=== PATIENT | male | born 1940 | race Caucasian/White ===

== ENCOUNTER 2017-06-06 05:37 | Inpatient (IN) | payer MEDICARE, BC ==
[~2017-06-06] VITALS: Ht 180.3 cm; Wt 88.5 kg
[2017-06-06] VITALS (11 sets, daily range): BP systolic 101–158; BP diastolic 69–113; PULSE 51–140; RESP 15–20; TEMP 96.3–98.3; O2SAT 95–99
[~2017-06-06 05:37] MED LIST: FINA5TAB77; RAPA8CAP PO
[2017-06-06] MEDS ORDERED: FUROSEMIDE 100 MG/10 ML VIAL IV PUSH ONE (06:00)
[2017-06-06] MEDS ORDERED: SODIUM CHLORIDE 0.9% FLUSH 10 ML FLUSH IVF PRN (06:00)
[2017-06-06 06:10] LABS: AUTOMATED NEUTROPHIL # 7.7 TH/MM3 (1.8-7.7); BASOPHIL # 0.1 TH/MM3 (0-0.2); EOSINOPHIL # 0.3 TH/MM3 (0-0.4); EOSINOPHIL % 2.4 % (0.0-4.0); HEMATOCRIT 49.5 % (39.0-51.0); HEMO FLAGS DIFF FINAL; LYMPH % 21.5 % (9.0-44.0); LYMPHOCYTE # 2.4 TH/MM3 (1.0-4.8); MEAN CELL VOLUME 91.1 FL (80.0-100.0); MEAN CORPUSCULAR HEMOGLOBIN 28.6 PG (27.0-34.0); MEAN CORPUSCULAR HGB CONC 31.5 % (32.0-36.0); MONO % 5.1 % (0.0-8.0); PLATELET COUNT 331 TH/MM3 (150-450); RED BLOOD COUNT 5.44 MIL/MM3 (4.50-5.90); RED CELL DISTRIBUTION WIDTH 13.6 % (11.6-17.2); WHITE BLOOD COUNT 11.1 TH/MM3 (4.0-11.0)
[2017-06-06] MEDS ORDERED: RAPA8CAP PO (06:10)
[2017-06-06] MEDS ORDERED: ADVA250A INH (06:10)
--- NOTE | 2017-06-06 06:11 | PD ---
HPI Chief Complaint: Short of breath Time Seen by Provider: 05:54 Travel History International Travel<30 days: No Contact w/Intl Traveler<30days: No Traveled to known affect area: No History of Present Illness HPI The patient is a 77-year-old male who comes in because of shortness of breath for 2 weeks. He states he's fine during the day but in the morning he wakes up short of breath. He did not notice leg swelling but he does have leg swelling. He has had a history of atrial fibrillation perhaps 10 years ago. He was on warfarin for a while given to him by Dr. Rivas but this was discontinued. He is not aware when he gets atrial fibrillation. He denies any chest discomfort, nausea but does have slight diaphoresis. The only medicine he takes is Rapaflo for his BPH and Advair for his asthma. PFSH Past Medical History Cancer: Yes (SKIN) Diminished Hearing: No Genitourinary: Yes (BPH) Respiratory: Yes (BRONCHITIS PAST 3 MONTHS 05/12/1106/12/2007) Immunizations Current: Yes Past Surgical History Appendectomy: Yes Tonsillectomy: Yes Other Surgery: Yes (SKIN CA REMOVED FROM FACE) Social History Alcohol Use: Yes (OCC) Tobacco Use: No Substance Use: No Allergies-Medications (Allergen,Severity, Reaction): Coded Allergies: No Known Allergies (Verified , 06/06/17) Reported Meds & Prescriptions Reported Meds & Active Scripts Active Reported Advair Diskus Inh (Fluticasone-Salmeterol Inh) 250-50 Mcg/Blist Aer 1 Puff INH BID Rinse mouth after use. Rapaflo (Silodosin) 8 Mg Cap 8 Mg PO DAILY Review of Systems Except as stated in HPI: all other systems reviewed are Neg Physical Exam Narrative GENERAL: The patient is alert, oriented 3 in no respirator distress. His vital signs show temperature 97.1 with pulse rate of 140 and blood pressure 139/ 97. Oximetry is 100% on 2 L nasal cannula. SKIN: Focused skin assessment warm/dry. HEAD: Atraumatic. Normocephalic. EYES: Pupils equal and round. No scleral icterus. No injection or drainage. ENT: No nasal bleeding or discharge. Mucous membranes pink and moist. NECK: Trachea midline. No JVD. CARDIOVASCULAR: Atrial fibrillation with rapid ventricular response. No murmur appreciated. RESPIRATORY: No accessory muscle use. Clear to auscultation. Breath sounds equal bilaterally. GASTROINTESTINAL: Abdomen soft, non-tender, nondistended. Hepatic and splenic margins not palpable. MUSCULOSKELETAL: No obvious deformities. No clubbing. No cyanosis. There is 2 + bilateral lower extremity edema. NEUROLOGICAL: Awake and alert. No obvious cranial nerve deficits. Motor grossly within normal limits. Normal speech. PSYCHIATRIC: Appropriate mood and affect; insight and judgment normal. Data Data Last Documented VS Vital Signs Date Time Temp Pulse Resp B/P (MAP) Pulse Ox O2 Delivery O2 Flow Rate FiO2 06/06/17 06:43 100 158/98 06/06/17 06:40 20 06/06/17 06:24 95 Nasal Cannula 2.00 06/06/17 05:44 97.1 Orders Orders Electrocardiogram (06/06/17 05:54) Complete Blood Count With Diff (06/06/17 05:54) Comprehensive Metabolic Panel (06/06/17 05:54) Magnesium (Mg) (06/06/17 05:54) Prothrombin Time / Inr (Pt) (06/06/17 05:54) Act Partial Throm Time (Ptt) (06/06/17 05:54) Troponin I (06/06/17 05:54) Ecg Monitoring (06/06/17 05:54) Bilateral Bp Monitoring (06/06/17 05:54) Iv Access Insert/Monitor (06/06/17 05:54) Oximetry (06/06/17 05:54) Oxygen Administration (06/06/17 05:54) Sodium Chloride 0.9% Flush (Ns Flush) (06/06/17 06:00) B-Type Natriuretic Peptide (06/06/17 05:54) Furosemide Inj (Lasix Inj) (06/06/17 06:00) Vital Signs (Adult) Q15MX4,Q4H (06/06/17 06:12) Hand Finisher / Telemetry SANTOSH.Q8H (06/06/17 06:12) Cardiac Rhythm SANTOSH.Q8H (06/06/17 06:12) Notify Dr: Other (06/06/17 06:12) Diltiazem Inj (Cardizem Inj) (06/06/17 06:15) Diltiazem Inj (Cardizem Inj) (06/06/17 06:15) Chest, Single Ap (06/06/17 05:54) Urinary Catheter Insert/Apply (06/06/17 06:50) Labs Laboratory Tests Test 06/06/17 06:00 06/06/17 06:30 White Blood Count 11.1 TH/MM3 Red Blood Count 5.44 MIL/MM3 Hemoglobin 15.6 GM/DL Hematocrit 49.5 % Mean Corpuscular Volume 91.1 FL Mean Corpuscular Hemoglobin 28.6 PG Mean Corpuscular Hemoglobin Concent 31.5 % Red Cell Distribution Width 13.6 % Platelet Count 331 TH/MM3 Mean Platelet Volume 8.4 FL Neutrophils (%) (Auto) 70.0 % Lymphocytes (%) (Auto) 21.5 % Monocytes (%) (Auto) 5.1 % Eosinophils (%) (Auto) 2.4 % Basophils (%) (Auto) 1.0 % Neutrophils # (Auto) 7.7 TH/MM3 Lymphocytes # (Auto) 2.4 TH/MM3 Monocytes # (Auto) 0.6 TH/MM3 Eosinophils # (Auto) 0.3 TH/MM3 Basophils # (Auto) 0.1 TH/MM3 CBC Comment DIFF FINAL Differential Comment Prothrombin Time 12.0 SEC Prothromb Time International Ratio 1.1 RATIO Activated Partial Thromboplast Time 26.5 SEC B-Type Natriuretic Peptide 560 PG/ML Blood Urea Nitrogen 16 MG/DL Creatinine 1.00 MG/DL Random Glucose 121 MG/DL Albumin 4.0 GM/DL Calcium Level 9.2 MG/DL Magnesium Level 2.3 MG/DL Aspartate Amino Transf (AST/SGOT) 19 U/L Alanine Aminotransferase (ALT/SGPT) 30 U/L Sodium Level 136 MEQ/L Potassium Level 4.2 MEQ/L Chloride Level 101 MEQ/L Carbon Dioxide Level 28.3 MEQ/L Anion Gap 7 MEQ/L Estimat Glomerular Filtration Rate 73 ML/MIN [facility] Medical Decision Making Medical Screen Exam Complete: Yes Emergency Medical Condition: Yes Medical Record Reviewed: Yes Interpretation(s) The chest x-ray shows heart size upper limits of normal with a mild chronic- appearing interstitial changes and no acute pneumonia or edema. There is some old right rib fractures. The ProTime is 12.0 with an INR 1.1 and a PTT of 26.0. The EKG shows atrial fibrillation with a response rate of [address] elevation or depression. Differential Diagnosis Atrial fibrillation with RVR, congestive heart failure, electrolyte disorder, non-STEMI, acute coronary syndrome, pulmonary edema Narrative Course It is now 0656 the patient is transferred to Samson Odom MD Jun 06, 2017 06:11
[2017-06-06] MEDS ORDERED: DILTIAZEM HCL 25 MG/5 ML VIAL IV PUSH ONE (06:15)
[2017-06-06 06:21] LABS: APTT (PATIENT) 26.5 SEC (24.3-30.1); INTERNATIONAL NORMALIZED RATIO 1.1 RATIO
[2017-06-06] MEDS: DILTIAZEM INJ 125 MG in SODIUM CHLORIDE 0.9% INJ 100 ML IV PRN (06:43)
--- NOTE | 2017-06-06 06:45 | RADRPT ---
EXAM DATE/TIME: 06/06/2017 06:11 [place] COMPARISON: Report only, 08/29/2007. INDICATIONS : Short of breath. MEDICAL HISTORY : A-fib. SURGICAL HISTORY : None. ENCOUNTER: Initial ACUITY: 1 day PAIN SCORE: 5/10 LOCATION: Bilateral chest FINDINGS: Mild basilar predominant interstitial opacities are present, chronic appearing and described previous ly. No lobar consolidation seen. No pleural effusion or pneumothorax. Heart size upper limits of normal. Old right rib fractures are noted. CONCLUSION: Mild chronic appearing interstitial changes. No acute pneumonia or edema seen. Old right rib fracture s. Brina Jessica MD on June 06, 2017 at 6:42 Board Certified Radiologist. This report was verified electronically.
[2017-06-06 06:49] LABS: CHLORIDE 101 MEQ/L (98-107); POTASSIUM 4.2 MEQ/L (3.5-5.1); SODIUM (NA) 136 MEQ/L (136-145)
[2017-06-06 06:53] LABS: ANION GAP 7 MEQ/L (5-15); BICARBONATE 28.3 MEQ/L (21.0-32.0); BLOOD UREA NITROGEN 16 MG/DL (7-18); MAGNESIUM 2.3 MG/DL (1.5-2.5)
[2017-06-06 06:56] LABS: ALT (GPT) 30 U/L (12-78); AST (GOT) 19 U/L (15-37); GLOMERULAR FILTRATION RATE 73 ML/MIN (>89)
[2017-06-06 06:59] LABS: ALKALINE PHOSPHATASE 110 U/L (45-117)
--- NOTE | 2017-06-06 07:26 | PD ---
Physical Exam Narrative Received sign out from previous team to follow up troponin and admit pt. 77yo M with PMH of BPH, asthma, remote history of afib 10 years ago not on any medication presents to the ED with c/o sob for 2 weeks. Sob is worst with exertion. Denies any chest pain. On arrival, pt's was in afib RVR at 134bpm. Pt was given cardizem 15mg IV and then placed on a cardizem drip. HR is now in the 80s on cardizem drip. Pt has not seen his well driller Dr. Blum in at [facility] 7-8 years and has not been on coumadin for afib for around the same time. Labs reviewed, WBC 11.1. BNP elevated at 560. Bilirubin elevated at 2.0 but pt has no abdominal pain or tenderness on exam. Pt does have bilateral lower extremity edema but does not noticed it. Pt given 80mg IV lasix by previous team. Troponin 0.03. CXR showed mild chronic appearing interstitial changes. No acute pneumonia or edema. Old right rib fractures. Pt evaluated at bedside and feeling much better. No longer sob. HR is controlled with cardizem drip at 5ml/hr. Discussed with Dr. Rowell who accepted pt to her service. Data Data Last Documented VS Vital Signs Date Time Temp Pulse Resp B/P (MAP) Pulse Ox O2 Delivery O2 Flow Rate FiO2 06/06/17 06:43 100 158/98 06/06/17 06:40 20 06/06/17 06:24 95 Nasal Cannula 2.00 06/06/17 05:44 97.1 Orders Orders Electrocardiogram (06/06/17 05:54) Complete Blood Count With Diff (06/06/17 05:54) Comprehensive Metabolic Panel (06/06/17 05:54) Magnesium (Mg) (06/06/17 05:54) Prothrombin Time / Inr (Pt) (06/06/17 05:54) Act Partial Throm Time (Ptt) (06/06/17 05:54) Troponin I (06/06/17 05:54) Ecg Monitoring (06/06/17 05:54) Bilateral Bp Monitoring (06/06/17 05:54) Iv Access Insert/Monitor (06/06/17 05:54) Oximetry (06/06/17 05:54) Oxygen Administration (06/06/17 05:54) Sodium Chloride 0.9% Flush (Ns Flush) (06/06/17 06:00) B-Type Natriuretic Peptide (06/06/17 05:54) Furosemide Inj (Lasix Inj) (06/06/17 06:00) Vital Signs (Adult) Q15MX4,Q4H (06/06/17 06:12) Distance Learning Coordinator / Telemetry SANTOSH.Q8H (06/06/17 06:12) Cardiac Rhythm SANTOSH.Q8H (06/06/17 06:12) Notify Dr: Other (06/06/17 06:12) Diltiazem Inj (Cardizem Inj) (06/06/17 06:15) Diltiazem Inj (Cardizem Inj) (06/06/17 06:15) Chest, Single Ap (06/06/17 05:54) Urinary Catheter Insert/Apply (06/06/17 06:50) Admit Order (Ed Use Only) (06/06/17 07:38) Labs Laboratory Tests Test 06/06/17 06:00 06/06/17 06:30 White Blood Count 11.1 TH/MM3 Red Blood Count 5.44 MIL/MM3 Hemoglobin 15.6 GM/DL Hematocrit 49.5 % Mean Corpuscular Volume 91.1 FL Mean Corpuscular Hemoglobin 28.6 PG Mean Corpuscular Hemoglobin Concent 31.5 % Red Cell Distribution Width 13.6 % Platelet Count 331 TH/MM3 Mean Platelet Volume 8.4 FL Neutrophils (%) (Auto) 70.0 % Lymphocytes (%) (Auto) 21.5 % Monocytes (%) (Auto) 5.1 % Eosinophils (%) (Auto) 2.4 % Basophils (%) (Auto) 1.0 % Neutrophils # (Auto) 7.7 TH/MM3 Lymphocytes # (Auto) 2.4 TH/MM3 Monocytes # (Auto) 0.6 TH/MM3 Eosinophils # (Auto) 0.3 TH/MM3 Basophils # (Auto) 0.1 TH/MM3 CBC Comment DIFF FINAL Differential Comment Prothrombin Time 12.0 SEC Prothromb Time International Ratio 1.1 RATIO Activated Partial Thromboplast Time 26.5 SEC B-Type Natriuretic Peptide 560 PG/ML Blood Urea Nitrogen 16 MG/DL Creatinine 1.00 MG/DL Random Glucose 121 MG/DL Total Protein 7.3 GM/DL Albumin 4.0 GM/DL Calcium Level 9.2 MG/DL Magnesium Level 2.3 MG/DL Alkaline Phosphatase 110 U/L Aspartate Amino Transf (AST/SGOT) 19 U/L Alanine Aminotransferase (ALT/SGPT) 30 U/L Total Bilirubin 2.0 MG/DL Sodium Level 136 MEQ/L Potassium Level 4.2 MEQ/L Chloride Level 101 MEQ/L Carbon Dioxide Level 28.3 MEQ/L Anion Gap 7 MEQ/L Estimat Glomerular Filtration Rate 73 ML/MIN Troponin I 0.03 NG/ML MDM Supervised Visit with ALEISHA: No Diagnosis Primary Impression: Atrial fibrillation with RVR Admitting Information Admitting Physician Requests: Admit Marce Dixon DO Jun 06, 2017 07:26
[2017-06-06] MEDS ORDERED: LACTULOSE SYRUP 20 GM/30 ML CUP PO PRN (09:30)
[2017-06-06] MEDS ORDERED: SODIUM CHLORIDE 0.9% FLUSH 10 ML FLUSH IV FLUSH PRN (09:30)
[2017-06-06] MEDS ORDERED: ACETAMINOPHEN/HYDROcodone 325 MG/5 MG TAB PO PRN (09:30)
[2017-06-06] MEDS ORDERED: BISACODYL 10 MG SUPP RECTAL PRN (09:30)
[2017-06-06] MEDS ORDERED: SENNOSIDES 8.6 MG TAB PO PRN (09:30)
[2017-06-06] MEDS ORDERED: ONDANSETRON HCL 4 MG/2 ML VIAL IVP PRN (09:30)
[2017-06-06] MEDS ORDERED: ACETAMINOPHEN 325 MG TAB PO PRN (09:30)
[2017-06-06] MEDS ORDERED: MAGNESIUM HYDROXIDE SUSP 30 ML CUP PO PRN (09:30)
[2017-06-06] MEDS: METOPROLOL TARTRATE 50 MG TAB PO SCH ×5 (10:08→22:53)
[2017-06-06] MEDS: APIXABAN 5 MG TABLET PO SCH ×2 (10:09→20:04)
[2017-06-06 12:28] LABS: FREE T4 1.29 NG/DL (0.76-1.46)
--- NOTE | 2017-06-06 14:02 | EKG ---
Date Performed: 06/06/2017 Time Performed: 05:54:08 PTAGE: 77 years EKG: ATRIAL FIBRILLATION WITH RAPID VENTRICULAR RESPONSE NONSPECIFIC T-WAVE ABNORMALITY ABNORMAL RHYTHM ECG PREVIOUS TRACING : 02/28/2011 07.16 Since prior tracing, ventricular response atrial fibrillati on has increased. DOCTOR: Dago Aguilar Interpretating Date/Time 06/06/2017 14:01:17
--- NOTE | 2017-06-06 15:39 | ECHRPT ---
Indication: CONCLUSIONS Severely dilated left ventricle. Wall thickness is measured at the upper limits of normal. The left ventricular systolic function is severely reduced with an estimated ejection fraction in th e range of 20-25%. The left atrial size is mildly dilated. The right atrial size is zohbyjrq-cz-ixvbjgif dilated. The right atrial size is moderately dilated. A patent foramen ovale is present with a tfsa-ik-jhefj shunt demonstrated by color flow Doppler interrogation. Mild thickening of the mitral valve leaflets. Moderate mitral valve regurgitation. Diffuse calcification of the aortic valve. Moderate aortic valve regurgitation. Severe aortic valve stenosis. Aortic valve area is 0.4 cm. Aortic valve mean gradient is 41.5 mmHg. There is moderate tricuspid regurgitation. There is estimated moderate pulmonary hypertension present (range 50-60 mmHg). A large left sided pleural effusion is noted. BP: 123 / 81 HR: 92 Rhythm: Atrial fibrillation, Atrial flut ter MEASUREMENTS (Male / Female) Normal Values Technical Quality:Fair 2D ECHO LV Diastolic Diameter PLAX 6.3 cm 4.2 - 5.9 / 3.9 - 5.3 cm LV Systolic Diameter PLAX 5.4 cm IVS Diastolic Thickness 0.7 cm 0.6 - 1.0 / 0.6 - 0.9 cm LVPW Diastolic Thickness 0.8 cm 0.6 - 1.0 / 0.6 - 0.9 cm LV Relative Wall Thickness 0.2 LVOT Diameter 2.5 cm Aortic Root Diameter 3.4 cm LA Systolic Diameter LX 3.7 cm 3.0 - 4.0 / 2.7 - 3.8 cm LA Volume Index 40.7 cm/m 16 - 28 cm/m DOPPLER AV Peak Velocity 416.0 cm/s AV Peak Gradient 69.2 mmHg AV Mean Gradient 41.5 mmHg AV Velocity Time Integral 92.6 cm AI Peak Velocity 429.2 cm/s AI Peak Gradient 73.7 mmHg AI Pressure Half Time 590.4 ms LVOT Peak Velocity 43.9 cm/s LVOT Peak Gradient 0.8 mmHg LVOT Velocity Time Integral 7.5 cm LVOT Cardiac Index 1558.4 cm/minm AV Area Cont Eq vti 0.4 cm AV Area Cont Eq pk 0.5 cm Mitral E Point Velocity 87.0 cm/s LV E' Lateral Velocity 6.2 cm/s Mitral E to LV E' Lateral Ratio 14.1 LV E' Septal Velocity 6.2 cm/s Mitral E to LV E' Septal Ratio 13.9 TR Peak Velocity 327.0 cm/s TR Peak Gradient 42.8 mmHg Right Atrial Pressure 10.0 mmHg Pulmonary Artery Systolic Pressu 52.8 mmHg Right Ventricular Systolic Press 52.8 mmHg PV Peak Velocity 39.6 cm/s PV Peak Gradient 0.6 mmHg FINDINGS LEFT VENTRICLE Severely dilated left ventricle. Wall thickness is measured at the upper limits of normal. The left ventricular systolic function is severely reduced with an estimated ejection fraction in th e range of 20-25%. RIGHT VENTRICLE Normal right ventricular size and systolic function. LEFT ATRIUM The left atrial size is mildly dilated. RIGHT ATRIUM The right atrial size is gijjypvr-rj-zbdqsbst dilated. The right atrial size is moderately dilated. ATRIAL SEPTUM A patent foramen ovale is present with a gtig-xs-[id number] shunt demonstrated by color flow Doppler interrogation. AORTA The aortic root and proximal ascending aorta are normal in size on limited imaging. MITRAL VALVE Mild thickening of the mitral valve leaflets. Moderate mitral valve regurgitation. AORTIC VALVE Diffuse calcification of the aortic valve. Moderate aortic valve regurgitation. Severe aortic valve stenosis. Aortic valve area is 0.4 cm. Aortic valve mean gradient is 41.5 mmHg. TRICUSPID VALVE There is moderate tricuspid regurgitation. There is estimated moderate pulmonary hypertension present (range 50-60 mmHg). PULMONARY VALVE No pulmonary valve regurgitation or stenosis. VESSELS The inferior vena cava is normal in size. PERICARDIUM A large left sided pleural effusion is noted. Jreald Osborn MD, FACC (Electronically Signed) Final Date:06 June 2017 15:37
--- NOTE | 2017-06-06 16:15 | HHI.HP ---
[facility] Service [facility] Primary Care Physician Diony Perez M.D. Admission Diagnosis Afib RVR Diagnoses: Travel History International Travel<30 Days: No Contact w/Intl Traveler <30 Da: No Traveled to Known Affected Are: No History of Present Illness This is a very pleasant 77-year-old male with past medical history of remote atrial fibrillation, asthma, BPH who presented to the ER this morning complaining of shortness of breath 2 weeks. The patient states the symptoms have been getting progressively severe. No palliative factors. Exertion makes the dyspnea worse. He wakes up at 4 or 5:00 in the morning gasping for breath. He denies any chest pain or chest pressure. He does have a history of atrial fibrillation but he states he cannot tell when he is in A. fib. He used to be on anticoagulation. He has not seen his [facility] chemist for years. The patient denies any palpitations. He denies noting any pedal edema at home however the emergency department physician noted he had pedal edema. The emergency department he was noted to have atrial fibrillation with a rapid ventricular rate of 130 and was given IV Cardizem bolus and started on Cardizem drip. Chest x-ray showed chronic interstitial changes but no acute edema. The patient was given 80 mg IV of Lasix. This morning he states he is not short of breath at rest but still gets short of breath with exertion. A Abraham catheter was placed in the emergency department and he has diuresed about 3 L. Review of Systems Constitutional: DENIES: Fever, Weight gain, Weight loss, Chills Eyes: DENIES: Blurred vision, Diplopia Ears, nose, mouth, throat: DENIES: Throat pain, Running Nose Respiratory: COMPLAINS OF: Shortness of breath, DENIES: Cough Cardiovascular: COMPLAINS OF: Dyspnea on Exertion, DENIES: Chest pain, Palpitations Gastrointestinal: DENIES: Abdominal pain, Vomiting Genitourinary: DENIES: Hematuria, Dysuria Musculoskeletal: DENIES: Joint pain, Neck pain Integumentary: DENIES: Pruritus, Rash Hematologic/lymphatic: DENIES: Lymphadenopathy Neurologic: DENIES: Abnormal gait, Headache Psychiatric: DENIES: Anxiety, Confusion Past Family Social History Past Medical History BPH Atrial fibrillation Basal cell carcinoma removed from the scalp Asthma Reported Medications Allergies Coded Allergies Type Severity Reaction Last Updated Verified No Known Allergies 06/06/17 Yes Active Scripts Medications Dose Route/Sig Max Daily Dose Days Date Category Dose Instructions Advair Diskus Inh (Fluticasone-Salmeterol Inh) 250-50 Mcg/Blist Aer 1 Puff INH BID 06/06/17 Reported Rinse mouth after use. Rapaflo (Silodosin) 8 Mg Cap 8 Mg PO DAILY 06/06/17 Reported Allergies: Coded Allergies: No Known Allergies (Verified , 06/06/17) Family History Reviewed and noncontributory Social History No alcohol tobacco or drug use Physical Exam Vital Signs Vital Signs Date Time Temp Pulse Resp B/P (MAP) Pulse Ox O2 Delivery O2 Flow Rate FiO2 06/06/17 12:43 96.7 71 16 101/85 (90) 97 06/06/17 09:15 95 06/06/17 08:50 96.3 92 15 123/81 (95) 99 06/06/17 08:29 06/06/17 08:07 86 18 101/69 (80) 99 Nasal Cannula 2.00 06/06/17 06:43 100 158/98 06/06/17 06:40 95 20 158/98 (118) 147/89 (108) 06/06/17 06:24 142 28 95 Nasal Cannula 2.00 06/06/17 06:20 115 20 157/113 (128) 98 06/06/17 06:04 100 Nasal Cannula 2.00 06/06/17 05:44 97.1 140 16 139/97 (111) 98 Physical Exam GENERAL: Well-nourished, well-developed patient. SKIN: Warm and dry. HEAD: Normocephalic. EYES: No scleral icterus. No injection or drainage. NECK: Supple, trachea midline. No JVD or lymphadenopathy. CARDIOVASCULAR: Irregular rate and rhythm, 2/6 systolic murmur left sternal border. RESPIRATORY: Breath sounds equal bilaterally. No crackles. No accessory muscle use. GASTROINTESTINAL: Abdomen soft, non-tender, nondistended. EXTREMITIES: 1+ pitting pedal edema bilaterally. NEUROLOGICAL: Awake, alert, and oriented x 3. Non-focal. Laboratory Laboratory Tests Test 06/06/17 06:00 06/06/17 06:30 White Blood Count 11.1 Red Blood Count 5.44 Hemoglobin 15.6 Hematocrit 49.5 Mean Corpuscular Volume 91.1 Mean Corpuscular Hemoglobin 28.6 Mean Corpuscular Hemoglobin Concent 31.5 Red Cell Distribution Width 13.6 Platelet Count 331 Mean Platelet Volume 8.4 Neutrophils (%) (Auto) 70.0 Lymphocytes (%) (Auto) 21.5 Monocytes (%) (Auto) 5.1 Eosinophils (%) (Auto) 2.4 Basophils (%) (Auto) 1.0 Neutrophils # (Auto) 7.7 Lymphocytes # (Auto) 2.4 Monocytes # (Auto) 0.6 Eosinophils # (Auto) 0.3 Basophils # (Auto) 0.1 CBC Comment DIFF FINAL Differential Comment Prothrombin Time 12.0 Prothromb Time International Ratio 1.1 Activated Partial Thromboplast Time 26.5 B-Type Natriuretic Peptide 560 Blood Urea Nitrogen 16 Creatinine 1.00 Random Glucose 121 Total Protein 7.3 Albumin 4.0 Calcium Level 9.2 Magnesium Level 2.3 Alkaline Phosphatase 110 Aspartate Amino Transf (AST/SGOT) 19 Alanine Aminotransferase (ALT/SGPT) 30 Total Bilirubin 2.0 Sodium Level 136 Potassium Level 4.2 Chloride Level 101 Carbon Dioxide Level 28.3 Anion Gap 7 Estimat Glomerular Filtration Rate 73 Troponin I 0.03 Free Thyroxine 1.29 Thyroid Stimulating Hormone 3rd Gen 1.070 Result Diagram: 06/06/17 0600 06/06/17 0630 Imaging Last Impressions Chest X-Ray 06/06/17 0554 Signed Impressions: Service Date/Time: June 06:11 - CONCLUSION: Mild chronic appearing interstitial changes. No acute pneumonia or edema seen. Old right rib fractures. Brian Jessica MD Caprini VTE Risk Assessment Caprini VTE Risk Assessment: Mod/High Risk (score >= 2) Caprini Risk Assessment Model Point Value = 1 Point Value = 2 Point Value = 3 Point Value = 5 Age 41-60 Minor surgery BMI > 25 kg/m2 Swollen legs Varicose veins or History of unexplained or recurrent spontaneous Oral contraceptives or hormone replacement Sepsis (< 1 month) Serious lung disease, including pneumonia (< 1 month) Abnormal pulmonary function Acute myocardial infarction Congestive heart failure (< 1 month) History of inflammatory bowel disease Medical patient at bed rest Age 61-74 Arthroscopic surgery Major open surgery (> 45 min) Laparoscopic surgery (> 45 min) Malignancy Confined to bed (> 72 hours) Immobilizing plaster cast Central venous access Age >= 75 History of VTE Family history of VTE Factor V Leiden Prothrombin 31001M Lupus anticoagulant Anticardiolipin antibodies Elevated serum homocysteine Heparin-induced thrombocytopenia Other congenital or acquired thrombophilia Stroke (< 1 month) Elective arthroplasty Hip, pelvis, or leg fracture Acute spinal cord injury (< 1 month) Prophylaxis Regimen Total Risk Factor Score Risk Level Prophylaxis Regimen 0-1 Low Early ambulation 2 Moderate Order ONE of the following: *Sequential Compression Device (SCD) *Heparin 5000 units SQ BID 3-4 Higher Order ONE of the following medications: *Heparin 5000 units SQ TID *Enoxaparin/Lovenox 40 mg SQ daily (WT < 150 kg, CrCl > 30 mL/min) *Enoxaparin/Lovenox 30 mg SQ daily (WT < 150 kg, CrCl > 10-29 mL/min) *Enoxaparin/Lovenox 30 mg SQ BID (WT < 150 kg, CrCl > 30 mL/min) AND/OR *Sequential Compression Device (SCD) 5 or more Highest Order ONE of the following medications: *Heparin 5000 units SQ TID (Preferred with Epidurals) *Enoxaparin/Lovenox 40 mg SQ daily (WT < 150 kg, CrCl > 30 mL/min) *Enoxaparin/Lovenox 30 mg SQ daily (WT < 150 kg, CrCl > 10-29 mL/min) *Enoxaparin/Lovenox 30 mg SQ BID (WT < 150 kg, CrCl > 30 mL/min) AND *Sequential Compression Device (SCD) Assessment and Plan Problem List: (1) Dilated cardiomyopathy ICD Code: I42.0 - Dilated cardiomyopathy (2) Severe aortic valve stenosis ICD Code: I35.0 - Nonrheumatic aortic (valve) stenosis (3) Dyspnea ICD Code: R06.00 - Dyspnea, unspecified (4) Atrial fibrillation with RVR ICD Code: I48.91 - Unspecified atrial fibrillation Status: Acute Assessment and Plan 77-year-old male presents with dyspnea for 2 weeks -Atrial fibrillation with rapid ventricular rate - continue by mouth metoprolol and wean Cardizem drip. Started on Eliquis. Thyroid studies are normal. -Severe aortic stenosis with dilated cardiomyopathy and left ventricular ejection fraction of 20% - I discussed with [facility]plc chemist Dr. morton who would like the patient transferred to the main hospital for catheterization and further evaluation of the valve. Patient is agreeable to the plan. He has pedal edema on exam but lung tomas are clear. Status post IV Lasix in the ED. Continue Lasix by mouth. -BPH. Continue Flomax. A catheter was placed in the emergency department, I will discontinue this. -DVT prophylaxis on Eliquis. Tricia Rowell MD Jun 06, 2017 16:15
[2017-06-06] MEDS: SODIUM CHLORIDE 0.9% FLUSH 10 ML FLUSH IV FLUSH SCH (20:03)
[2017-06-06] MEDS: BUDESONIDE-FORMOTEROL 160/4.5 MCG INHALER INH SCH (20:03)
[2017-06-06] MEDS: POTASSIUM CHLORIDE 10 MEQ CAP PO SCH (20:04)
[2017-06-07] VITALS (16 sets, daily range): BP systolic 112–122; BP diastolic 69–97; PULSE 55–113; RESP 17–20; TEMP 97.4–98.4; O2SAT 94–98
[2017-06-07] MEDS: DILTIAZEM INJ 125 MG in SODIUM CHLORIDE 0.9% INJ 100 ML IV PRN (05:00)
[2017-06-07 06:38] LABS: BICARBONATE 27.4 MEQ/L (21.0-32.0)
--- NOTE | 2017-06-07 08:46 | MB ---
cc: ROBY PEREZ DATE OF CONSULTATION 06/07/2017 REASON FOR CONSULTATION Cardiomyopathy HISTORY OF PRESENT ILLNESS This is a 77-year-old gentleman who has a remote history of atrial fibrillation about five to six years ago which apparently resolved. He has not had any recurrence to his knowledge, although he has not had great outpatient followup. He also has a history of asthma. Over the course of the past few weeks, he has become progressively short of breath and initially attributed this to his asthma, but the night before last, he awoke about 4 in the morning gasping for air. He denies any chuckie chest pain. He came into the emergency department at [facility] where he was noted to be in atrial fibrillation with rapid ventricular rate. He was started on a Cardizem drip and his heart rate now is much better controlled. He was also given 80 mg of Lasix with good diuresis. Symptomatically, he is feeling much better. Echocardiogram was performed which showed a new severe cardiomyopathy in addition to valvular heart disease. He has severe aortic stenosis in addition to moderate mitral regurgitation. Chest x-ray showed interstitial edema. He was transferred over to [facility] for further workup. PAST MEDICAL HISTORY 1. Atrial fibrillation 2. Asthma 3. BPH ALLERGIES NO KNOWN DRUG ALLERGIES. FAMILY HISTORY He denies any family history of early coronary artery disease or sudden cardiac . SOCIAL HISTORY Denies any alcohol, tobacco or drug use. REVIEW OF SYSTEMS A 12-point review of systems was performed and is negative unless otherwise as noted in the history of present illness. PHYSICAL EXAMINATION VITAL SIGNS: Temperature 97, heart rate 64, blood pressure 120/72 mmHg. GENERAL: Alert and oriented x3 in no acute distress. HEENT: Exam shows pupils reactive to light and accommodation. Extraocular movements are intact. NECK: Jugular veins were mildly distended. No thyromegaly, no lymphadenopathy, no carotid bruits. LUNGS: Clear auscultation bilaterally. Fine bibasilar crackles. CARDIOVASCULAR: Irregular irregularly, 2/6 systolic murmur, crescendo/decrescendo right sternal border. 1/6 holosystolic murmur at the apex radiating to the axilla. ABDOMEN: The abdominal exam is nontender and nondistended. Good bowel sounds. No hepatosplenomegaly. EXTREMITIES: Show no clubbing, cyanosis or edema. Good peripheral pulses. NEUROLOGIC: Cranial nerves intact. Motor and sensory grossly intact. LABORATORY DATA Sodium 136, potassium 4.0, BUN 16, creatinine 0.92, B-type nitrate peptide 560, T4 1.29. WBC 11.1, hemoglobin 15.6, platelet count is 331, INR is 1.1. Electrocardiogram: Atrial fibrillation, nonspecific T-wave abnormality. ASSESSMENT 1. Acute systolic congestive heart failure. 2. Severe aortic stenosis. 3. New cardiomyopathy 4. Atrial fibrillation with rapid ventricular rate. PLAN The patient has severe valvular heart disease which includes severe aortic stenosis and moderate aortic regurgitation. He also has new severe cardiomyopathy and acute systolic congestive heart failure. Clinically, he is much improved with aggressive diuresis. He is - 2.3 liters since yesterday. His creatinine is stable. It is not entirely clear as to the etiology of his cardiomyopathy. His global hypokinesis is more consistent with a nonischemic etiology. He is going to need a left heart cath to rule out ischemic etiology. His cardiomyopathy may be viral versus valvular. I think it is less likely due to rate related cardiomyopathy due to the relatively short duration palpitations symptoms. We will proceed with a right and left heart catheterization today to further evaluate his coronary anatomy in addition to left and right heart filling pressures. At that point, we will need to decide what is the best approach for potentially addressing his valvular heart disease. I believe his mitral regurgitation is likely a reflection of his dilated left ventricle due to the cardiomyopathy in conjunction with restricted outflow secondary to his aortic stenosis. Mitral regurgitation will likely improve with aortic valvular replacement. We will have to discuss further potential options which include transcatheter aortic valve replacement versus traditional open surgical replacement. MD DAGMAR Alvarado/SHANICE /8:18 AM /8:34 AM RACHELLE
[2017-06-07] MEDS: SODIUM CHLORIDE 0.9% FLUSH 10 ML FLUSH IV FLUSH SCH ×2 (09:00→21:11)
[2017-06-07] MEDS ORDERED: TAMSULOSIN HCL 0.4 MG CAP PO SCH (09:00)
[2017-06-07] MEDS: BUDESONIDE-FORMOTEROL 160/4.5 MCG INHALER INH SCH ×2 (09:00→21:11)
--- NOTE | 2017-06-07 09:23 | HHI.PR ---
Subjective Remarks Patient in the chair. Has davey in place with bloody urine. No n/v/d/c. Has intermittent chest pain. No sob, nausea, diaphoresis, palpitations. Objective Vitals Vital Signs Date Time Temp Pulse Resp B/P (MAP) Pulse Ox O2 Delivery O2 Flow Rate FiO2 06/07/17 05:00 68 06/07/17 05:00 64 120/72 06/07/17 04:00 68 06/07/17 04:00 97.7 55 18 120/72 (88) 94 06/07/17 03:00 66 06/07/17 02:00 58 06/07/17 01:00 97.4 67 18 122/79 (93) 96 06/07/17 01:00 66 06/07/17 00:00 18 06/06/17 23:00 81 06/06/17 22:40 80 120/85 (97) 96 06/06/17 20:00 98.3 51 20 112/88 (96) 95 06/06/17 20:00 51 06/06/17 17:04 97.1 76 15 142/86 (104) 98 06/06/17 17:04 76 142/86 06/06/17 12:43 96.7 71 16 101/85 (90) 97 06/06/17 12:43 71 101/85 I/O 06/06/17 06/06/17 06/06/17 06/07/17 06/07/17 06/07/17 07:00 15:00 23:00 07:00 15:00 23:00 Intake Total 1563 ml 0 ml Output Total 600 ml 2400 ml 1200 ml 250 ml Balance -600 ml -2400 ml 363 ml -250 ml Intake Oral 1500 ml 0 ml IV Total 63 ml Output Urine Total 600 ml 2400 ml 1200 ml 250 ml # Voids 2 Result Diagram: 06/06/17 0600 06/07/17527 Imaging Last Impressions Chest X-Ray 06/06/1754 Signed Impressions: Service Date/Time: June 06:11 - CONCLUSION: Mild chronic appearing interstitial changes. No acute pneumonia or edema seen. Old right rib fractures. Brian Jessica MD Objective Remarks GENERAL: Well-nourished, well-developed patient. CARDIOVASCULAR: Irregular rate and rhythm, 2/6 systolic murmur left sternal border. RESPIRATORY: Breath sounds equal bilaterally. No crackles. No accessory muscle use. GASTROINTESTINAL: Abdomen soft, non-tender, nondistended. EXTREMITIES: 1+ pitting pedal edema bilaterally. NEUROLOGICAL: Awake, alert, and oriented x 3. Non-focal. A/P Problem List: (1) Dilated cardiomyopathy ICD Code: I42.0 - Dilated cardiomyopathy (2) Severe aortic valve stenosis ICD Code: I35.0 - Nonrheumatic aortic (valve) stenosis (3) Dyspnea ICD Code: R06.00 - Dyspnea, unspecified (4) Atrial fibrillation with RVR ICD Code: I48.91 - Unspecified atrial fibrillation Status: Acute Assessment and Plan 77-year-old male presents with dyspnea for 2 weeks Atrial fibrillation with rapid ventricular rate - continue by mouth metoprolol and wean Cardizem drip. Started on Eliquis. Thyroid studies are normal. Severe aortic stenosis with dilated cardiomyopathy and left ventricular ejection fraction of 20% Afib with RVR- Per [employer] Dr. Osborn would like the patient transferred to the [facility] for catheterization and further evaluation of the valve. Patient is agreeable to the plan. He has pedal edema on exam but lung tomas are clear. Status post IV Lasix in the ED. Continue Lasix by mouth. Plan for cardiac cath BPH. Continue Flomax. A catheter was placed in the emergency department, discontinue flomax. DVT prophylaxis on Eliquis. Discussed with the patient, nurse. Problem Qualifiers (1) Dyspnea: Qualified Codes: R06.01 - Orthopnea Yenifer Tejeda MD Jun 07, 2017 09:23
[2017-06-07] MEDS: POTASSIUM CHLORIDE 10 MEQ CAP PO SCH ×2 (09:46→21:11)
[2017-06-07] MEDS: FUROSEMIDE 20 MG TAB PO SCH (09:46)
[2017-06-07] MEDS: METOPROLOL TARTRATE 25 MG TAB PO SCH ×2 (09:51→21:10)
[2017-06-07] MEDS: SACUBITRIL/VALSARTAN 24 MG-26 MG TAB PO SCH ×2 (09:53→21:10)
[2017-06-07] MEDS ORDERED: HEPARIN-NS/PF INJ 500 ML ONE (10:26)
[2017-06-07] MEDS ORDERED: MIDAZOLAM HCL 2 MG/2 ML VIAL ONE ×2 (10:26→10:43)
[2017-06-07] MEDS ORDERED: BIVALIRUDIN 250 MG VIAL ONE (11:07)
[2017-06-07] MEDS ORDERED: HEPARIN SODIUM - IV 10,000 UNITS/10 ML VIAL ONE (11:07)
[2017-06-07] MEDS ORDERED: STERILE WATER FOR INJECTION 10 ML VIAL ONE (11:07)
[2017-06-07] MEDS ORDERED: CLOPIDOGREL 300 MG TAB ONE (11:14)
--- NOTE | 2017-06-07 11:19 | PD.CONS ---
History of Present Illness Service CT Surgery Consult Requested By Dr. Osborn Reason for Consult Severe and combined systolic and diastolic heart failure Primary Care Physician Diony Perez M.D. Diagnoses: (1) Combined systolic and diastolic congestive heart failure, NYHA class 4 (2) Severe aortic valve stenosis (3) Dyspnea History of Present Illness 77 y/o male presents with severe dyspnea and AFIB with rapid VR. He has a h/o PSVT x5-6 yrs. He was found to have severe on his most recent echo with moderate MR and moderate AI. He is scheduled for cardiac cath today. AVR is recommended pending cath results. Review of Systems Constitutional: COMPLAINS OF: Fatigue, Weight gain, DENIES: Diaphoretic episodes, Fever, Weight loss, Chills, Dizziness, Change in appetite, Night Sweats Endocrine: DENIES: Heat/cold intolerance, Polydipsia, Polyuria, Polyphagia Eyes: DENIES: Blurred vision, Diplopia, Eye inflammation, Eye pain, Vision loss , Photosensitivity, Double Vision Ears, nose, mouth, throat: DENIES: Tinnitus, Hearing loss, Vertigo, Nasal discharge, Oral lesions, Throat pain, Hoarseness, Ear Pain, Running Nose, Epistaxis, Sinus Pain, Toothache, Odynophagia Respiratory: COMPLAINS OF: Cough, Shortness of breath, DENIES: Apneas, Snoring , Wheezing, Hemoptysis, Sputum production Cardiovascular: COMPLAINS OF: Palpitations, Dyspnea on Exertion, Orthopnea, DENIES: Chest pain, Syncope, PND, Lower Extremity Edema, Claudication Gastrointestinal: DENIES: Abdominal pain, Black stools, Bloody stools, Constipation, Diarrhea, Nausea, Vomiting, Difficulty Swallowing, Anorexia Musculoskeletal: COMPLAINS OF: Joint pain, Stiffness, DENIES: Muscle aches, Joint Swelling, Back pain, Neck pain Integumentary: DENIES: Abnormal pigmentation, Nail changes, Pruritus, Rash Hematologic/lymphatic: DENIES: Bruising, Lymphadenopathy Immunologic/allergic: DENIES: Eczema, Urticaria Neurologic: DENIES: Abnormal gait, Headache, Localized weakness, Paresthesias, Seizures, Speech Problems, Tremor, Poor Balance Psychiatric: DENIES: Anxiety, Confusion, Mood changes, Depression, Hallucinations, Agitation, Suicidal Ideation, Homicidal Ideation, Delusions Past Family Social History Allergies: Coded Allergies: No Known Allergies (Verified , 06/06/17) Past Medical History BPH Atrial fibrillation Basal cell carcinoma removed from the scalp Asthma Reported Medications Allergies Coded Allergies Type Severity Reaction Last Updated Verified No Known Allergies 06/06/17 Yes Active Scripts Medications Dose Route/Sig Max Daily Dose Days Date Category Dose Instructions Advair Diskus Inh (Fluticasone-Salmeterol Inh) 250-50 Mcg/Blist Aer 1 Puff INH BID 06/06/17 Reported Rinse mouth after use. Rapaflo (Silodosin) 8 Mg Cap 8 Mg PO DAILY 06/06/17 Reported Active Ordered Medications Current Medications Medications (Trade) Dose Ordered Sig/Alessandro Route Start Time Stop Time Status Last Admin (NS Flush) 2 ml UNSCH PRN IV FLUSH 06/06/17 09:30 (NS Flush) 2 ml BID IV FLUSH 06/06/17 21:00 06/06/17 20:03 (Lasix) 20 mg DAILY PO 06/07/17 09:00 06/07/17 09:46 (KCl) 10 meq BID PO 06/06/17 21:00 06/07/17 09:46 (Zofran Inj) 4 mg Q6H PRN IVP 06/06/17 09:30 (Tylenol) 650 mg Q6H PRN PO 06/06/17 09:30 ([place] 5-325 Mg) 1 tab Q4H PRN PO 06/06/17 09:30 (Milk Of Magnesia Liq) 30 ml Q12H PRN PO 06/06/17 09:30 (Senokot) 17.2 mg Q12H PRN PO 06/06/17 09:30 (Dulcolax Supp) 10 mg DAILY PRN RECTAL 06/06/17 09:30 (Lactulose Liq) 30 ml DAILY PRN PO 06/06/17 09:30 (Symbicort 160-4.5 Inh) 2 puff BID INH 06/06/17 21:00 06/07/17 09:00 (Flomax) 0.4 mg DAILY PO 06/07/17 09:00 06/07/17 09:46 (Lopressor) 25 mg BID PO 06/07/17 09:00 06/07/17 09:51 (Entresto 24-26 Mg) 1 tab BID PO 06/07/17 09:00 06/07/17 09:53 Family History unremarkable Social History Denies tobacco or ETOH abuse Physical Exam Vital Signs Vital Signs Date Time Temp Pulse Resp B/P (MAP) Pulse Ox O2 Delivery O2 Flow Rate FiO2 06/07/17 05:00 68 06/07/17 05:00 64 120/72 06/07/17 04:00 68 06/07/17 04:00 97.7 55 18 120/72 (88) 94 06/07/17 03:00 66 06/07/17 02:00 58 06/07/17 01:00 97.4 67 18 122/79 (93) 96 06/07/17 01:00 66 06/07/17 00:00 18 06/06/17 23:00 81 06/06/17 22:40 80 120/85 (97) 96 06/06/17 20:00 98.3 51 20 112/88 (96) 95 06/06/17 20:00 51 06/06/17 17:04 97.1 76 15 142/86 (104) 98 06/06/17 17:04 76 142/86 06/06/17 12:43 96.7 71 16 101/85 (90) 97 06/06/17 12:43 71 101/85 Physical Exam GENERAL: This is a well-nourished, well-developed patient, in no apparent distress. SKIN: No rashes, ecchymoses or lesions. Cool and dry. HEAD: Atraumatic. Normocephalic. No temporal or scalp tenderness. EYES: Pupils equal round and reactive. Extraocular motions intact. No scleral icterus. No injection or drainage. ENT: Nose without bleeding, purulent drainage or septal hematoma. Throat without erythema, tonsillar hypertrophy or exudate. Uvula midline. Airway patent. NECK: Trachea midline. No JVD or lymphadenopathy. Supple, nontender, no meningeal signs. CARDIOVASCULAR: IRR with a 2/6 JANY. RESPIRATORY: Few crackles bilaterally GASTROINTESTINAL: Abdomen soft, non-tender, nondistended. No hepato-splenomegaly , or palpable masses. No guarding. MUSCULOSKELETAL: Extremities without clubbing, cyanosis, or edema. No joint tenderness, effusion, or edema noted. No calf tenderness. Negative Homans sign bilaterally. NEUROLOGICAL: Awake and alert. Cranial nerves II through XII intact. Motor and sensory grossly within normal limits. Five out of 5 muscle strength in all muscle groups. Normal speech. Laboratory Laboratory Tests Test 06/07/17 05:28 Blood Urea Nitrogen 16 Creatinine 0.92 Random Glucose 95 Calcium Level 9.1 Sodium Level 136 Potassium Level 4.0 Chloride Level 101 Carbon Dioxide Level 27.4 Anion Gap 8 Estimat Glomerular Filtration Rate 80 Result Diagram: 06/06/17 0600 06/07/17 0528 Imaging Last Impressions Chest X-Ray 06/06/17 0554 Signed Impressions: Service Date/Time: June 06:11 - CONCLUSION: Mild chronic appearing interstitial changes. No acute pneumonia or edema seen. Old right rib fractures. Brian Jessica MD Course Patient was admitted with severe dyspnea and acute combined systolic and diastolic HF. He responded well to diuretics and has stabilized. He is scheduled for [facility] today. Assessment and Plan Assessment and Plan 77y/o male presents with significant cardiomyopathy with EF~15% in the setting of severe , moderate AI, and moderate MR. He has responded well to diuresis and is stable. His cardiac cath is pending. AVR is recommended and his risk is intermediate given his low EF. TAVR is a reasonable option for this patient. Will follow-up with him when his workup is complete. Risk Model and Variables - STS Adult Cardiac Surgery Database Version 2.81 RISK SCORES About the STS Risk Calculator Procedure: AV Replacement Risk of Mortality: 4.056% Morbidity or Mortality: 25.932% Long Length of Stay: 10.314% Short Length of Stay: 22.921% Permanent Stroke: 1.54% Prolonged Ventilation: 18.113% DSW Infection: 0.798% Renal Failure: 5.118% Reoperation: 11.544% Problem Qualifiers (1) Combined systolic and diastolic congestive heart failure, NYHA class 4: Qualified Codes: I50.43 - Acute on chronic combined systolic (congestive) and diastolic (congestive) heart failure (2) Dyspnea: Qualified Codes: R06.01 - Orthopnea Sandra Lucio MD Jun 07, 2017 11:19
[2017-06-07] MEDS ORDERED: TIROFIBAN INFUSION INJ 250 ML IV SCH (11:34)
[2017-06-07] MEDS ORDERED: SODIUM CHLOR 0.9% 250 ML INJ 250 ML IV PRN (11:45)
[2017-06-07] MEDS ORDERED: MISC INFORMATION XX ONE (11:45)
[2017-06-07] MEDS ORDERED: LORazepam 2 MG/ML VIAL IV PUSH PRN (11:45)
[2017-06-07] MEDS ORDERED: ATROPINE SULFATE 1 MG/ML VIAL IV PUSH PRN (11:45)
[2017-06-07] MEDS ORDERED: MORPHINE SULFATE 4 MG/ML INJ IV PUSH PRN (11:45)
[2017-06-07] MEDS ORDERED: LIDOCAINE HCL 1% 50 ML VIAL INFIL PRN (11:45)
[2017-06-07] MEDS ORDERED: METOCLOPRAMIDE HCL 10 MG/2 ML VIAL IV PUSH PRN (11:45)
--- NOTE | 2017-06-07 11:51 | CATHPROC ---
[facility] HIS Report Study Information Study Number Admission Scheduled Start Study Start [id number] Jun 06 2017 7:40AM 06/07/2017 Jun 07 2017 10:13AM [place] Service Cardiac Catheterization Admit Source Facility Department Emergency department [facility] Laminator Preforms Physician and Clinical Staff Initial Jerald Walker Pipe Insulator Helper Jasmin Rinaldi,RN Pipe Insulator Helper Janett Schmidt,KUMAR Recorder Michelle Rios,RT(R) Scrub Chance MehtaRT(R) Procedures Performed Procedure Location (Site) Vessel Name Coronary Angiograms LCA Left Coronary Coronary Angiograms RCA Right Coronary Drug Eluting Inflatio RCA Mid Right Coronary PTCA Fem Art (right) Femoral Art Wire insertion Fem Art (right) Femoral Art Equipment Time Telephone Appointment Clerk Description Size Mfg Part Number Used/Scraped ARROW Cloud Takeoff CATHETER, FR.7 BALLOON [id number] 10:20 FR 7 Used INC. WEDGE PRESSURE *[id number] TRANSDUCER, GI Track [id number] 10:20 DIAZ REILLY * Used W/STOCKCOCK *[id number] [id number] *[id number] 534-620T *[id number] *[id number] 534-621T *[id number] 10:20 LegUP INDUSTRIES PACK, CCL CUSTOM * Used *[id number] 10:20 LegUP PACER PEN, SKIN DUAL W/ RULER * Used *[id number] 11:12 MEDTRONIC BALLOON, 2.0 X 20MM EUPHORA 20MM Used *[id number] 11:14 MEDTRONIC STENT, 2.5 26MM ALINA 2.5 26MM Used *[id number] 11:15 ScoreFeeder MEDICAL 30 HERON INDEFLATOR Used *[id number] 10:46 ScoreFeeder MEDICAL SHEATH, FR6.5 PRELUDE 11CM FR 6.5 038ACT Used *[id number] 10:52 MERIT MEDICAL WIRE, 3MMJ .035 180CM 180CM Used *[id number] 10:20 MERIT MEDICAL WIRE, 3MMJ .035 180CM 180CM Used *7330184 [id number] 10:57 [employer]eder MEDICAL WIRE, EXCHANGE 260CM 3MMJ 260CM Used *[id number] 10:51 [employer]eder MEDICAL WIRE, STRAIGHT TIP .035 * Used *[id number] 10:20 NAMIC MANIFOLD, 2 PORT * Used *[id number] [id number] 10:20 NAMIC MANIFOLD, 4 PORT * Used *[id number] 10:20 NYCOMED OMNIPAQUE, 350 MG, 150ML 150ML [id number] Used [id number] 10:20 BESSEMER MEDICAL BLANKET,WARM AIR CCL * Used *[id number] 10:20 TERUMO MEDICAL SHEATH, FR7 TERUMO (10CM) FR 7 Used *[id number] WIRE, RUNTHROUGH NS FLOPPY [id number] 11:09 TERUMO MEDICAL 180CM Used .014 180CM *[id number] 11:40 VASCULAR SOLUTIONS PIGTAIL DUAL LUMEN CATHETER FR 6 5540 *[id number] Used [id number] Scrap: Physician 10:20 TERUMO MEDICAL SHEATH, FR5 TERUMO (10CM) FR 5 *[id number] choice Equipment Model, Serial, Lot Number and Expiration Data Description Model Number Serial Number Lot Number Expiration Date SHEATH, FR6.5 PRELUDE 11CM [id number] 01-31-2020 STENT, 2.5 26MM ALINA [id number] 03-06-2019 History: Allergies Allergy Reaction No Known Allergies History: Risk Factors Family History of Hypertension Dyslipidemia Previous MT Previous Heart Failure Premature CAD No No No No No Prior Valve Prior PCI Prior CABG Surgery No No No Cerebrovascular Peripheral Artery Chronic Lung On Dialysis Diabetes Disease Disease Disease No No No Yes No History: Symptoms/Diagnosis Selection Items SOB History: Stress Tests Stress or Imaging Studies Performed No History: Arrhythmias Selection Items Atrial fibrillation History: Other Current Smoker Method Quit Packs a Day Years Used Pack Years No Cigarettes 40 Years Ago 1 20 20 Labs Hgb (g/dl) Hct (%) WBC (l/cumm) Platelets (thousands) 11.60-17.00 35.00-51.00 4.00-11.00 150.00-450.00 15.6 49.5 11.1 331 Glucose (mg/dl) BUN (mg/dl) Creatinine (mg/dl) BUN:Creatinine (1:x) 74.00-106.00 7.00-18.00 0.50-1.30 10.00-20.00 95 16 0.9 17.8 Na (meq/l) K (meq/l) 136.00-145.00 3.50-5.10 136 4 INR (PTT:PT) 0.90-1.10 1.1 Medication Medication Total Dose (Bolus/Oral) Medication Total Dosage/Unit 1% XYLOCAINE 20 mL ANGIOMAX BOLUS 13 mL FENTANYL 100 mcg OXYGEN 2 l/min PLAVIX 600 mg VERSED 4 mg Medications (Bolus/Oral) Medication Time Given Dosage/Unit Administered By Reason OXYGEN 06/07/2017 10:33:14 AM 2 l/min Jasmin Rinaldi 2 l/min OXYGEN given in lab by Jasmin Rinaldi RN via Nasal. VERSED 06/07/2017 10:40:00 AM 2 mg Gentry, Jasmin 2 mg VERSED given in lab by Jasmin Rinaldi RN in Left Antecubital via Peripheral IV. FENTANYL 06/07/2017 10:41:00 AM 50 mcg Juan Jose Rinaldion 50 mcg FENTANYL given in lab by Jasmin Rinaldi RN in Left Antecubital via Peripheral IV. VERSED 06/07/2017 10:43:00 AM 2 mg Gentry, Jasmin 2 mg VERSED given in lab by Jasmin Rinaldi RN in Left Antecubital via Peripheral IV. 1% XYLOCAINE 06/07/2017 10:43:50 AM 20 mL Jerald Osborn 20 mL 1% XYLOCAINE given in lab by Jerald Osborn in Right Groin via Subcutaneous. FENTANYL 06/07/2017 10:44:52 AM 50 mcg Jasmin Rinaldi 50 mcg FENTANYL given in lab by Jasmin Rinaldi RN via Peripheral IV. ANGIOMAX BOLUS 06/07/2017 11:08:00 AM 13 mL Jasmin Rinaldi 13 mL ANGIOMAX BOLUS given in lab by Jasmin Rinaldi RN in Left Antecubital via Peripheral IV. Ordere d by Jerald Osborn. PLAVIX 06/07/2017 11:34:00 AM 600 mg Jasmin Rinaldi 600 mg PLAVIX given in lab by Jasmin Rinaldi RN via Oral. Ordered by Jerald Osborn. Medication (Drip) Medication Time Given Dosage/Unit Concentration/Unit Diluent (ml) Solution ANGIOMAX DRIP 06/07/2017 11:09:00 AM 1.749 mg/kg/hr 250 mg 50 NaCl .9 1.749 mg/kg/hr ANGIOMAX DRIP given in lab by Jasmin Rinaldi RN in Left Antecubital via Peripheral IV . Pump/Drip Flow = 31 ml/hr using NaCl .9 with a concentration of 250 mg in 50 ml. Ordered by Jerald Osborn. CARDIZEM 06/07/2017 10:13:00 AM 5 mL/hr mL 5 mL/hr CARDIZEM given in lab by Jasmin Rinaldi RN in Right Antecubital via Peripheral IV. Pump/Drip Flow = 0 ml/hr using [Solution Name]. Initial Case Assessment Cardiovascular HR Rhythm NIBP Chest Pain 76 sr 149/93 0 Edema Present Skin color Skin Mild Normal Warm Dry Circulatory - Right Pulses Dorsalis Pedis Posterior Tibial Femoral 1 1 1 Scale (0,1,2,3,4,d) Circulatory - Left Pulses Dorsalis Pedis Posterior Tibial Femoral 1 1 1 Scale (0,1,2,3,4,d) Neurological State Oriented to time-place- Alert Moves all extremities person Respiration - General Respiration Rate SpO2 (%) (B/min) 10 95 Chronological Log Time Study Chronological Log 5 mL/hr CARDIZEM given in lab by Jasmin Rinaldi RN in Right Antecubital via Peripheral IV. Pum p/Drip Flow = 0 ml/hr 10:13:00 using [Solution Name]. 10:13:31 Patient arrived via Bed. 10:13:32 Patient Name, D.O.B, / Armband Verified By R.N. 10:13:33 Consent signed by the physician and the patient and verified by the Laminator Preforms staff. 10:13:33 Pre-op and post- op instructions given; patient acknowledges understanding of instructions. 10:13:34 Verbal Stimulation=2 Physical Stimulation=2 Airway=2 Respiration=2 TOTAL=8. (0=absent, 1=li mited, 2=present) 10:13:39 Patient has been NPO for More than 6Hrs. 10:13:40 Skin Breakdown- none per pt 10:13:41 Patient Warmer Placed on the Table. 10:13:42 Stella Prominences Protected 10:13:44 A # 20 IV was noted in the Antecubital (left). Grade = 0 10:13:49 A # 20 IV was noted in the Antecubital (right). Grade = 0 10:13:54 History and physical on the chart or being dictated. Assessment: Initial Case, HR=76 BPM, Rhythm=sr, AMEC=316/93 mmhg, Chest Pain=0, Edema=Mild, Col or=Normal, Skin = Warm, Dry Right Pulses: Hilario Ped=1, Post Tib=1, Femoral=1 10:13:56 Left Pulses: Hilario Ped=1, Post Tib=1, Femoral=1 Neurological: State=Alert, Ox3, FRANCO Respiration: Resp=10 B/min, SpO2=95 % Vitals capture started with the following parameters, Patient=Adult, Interval=5 min, Initial Pr nnmatm=552 mmHg, 10:20:01 Deflation Rate=5 mmHg, Cuff placed on Right Arm 10:20:35 HR=91 bpm, EUWJ=539/87 mmhg, SpO2=96.0 %, Resp=20 B/min 10:26:13 HR=85 bpm, PLFF=233/93 mmhg, SpO2=94.0 %, Resp=18 B/min 10:28:17 Bilateral groins prepped with 2% chlorhexidine, and draped after a 3 minute waiting time. 10:30:31 Reference ECG taken 10:31:18 HR=79 bpm, TRPZ=943/99 mmhg, SpO2=95.0 %, Resp=18 B/min 10:33:14 2 l/min OXYGEN given in lab by Jasmin Rinaldi, KUMAR via Nasal. 10:34:00 MD paged 10:34:30 MD responded 10:35:40 HR=83 bpm, TKZJ=838/88 mmhg, SpO2=97.0 %, Resp=16 B/min 10:36:24 Pressure channel 1 zeroed. 10:39:03 MD arrived. 10:40:00 2 mg VERSED given in lab by Jasmin Rinaldi, RN in Left Antecubital via Peripheral IV. 10:40:39 HR=83 bpm, BDOR=274/89 mmhg, SpO2=97.0 %, Resp=19 B/min 10:41:00 50 mcg FENTANYL given in lab by Jasmin Rinaldi, RN in Left Antecubital via Peripheral IV. Time Out. Correct patient, correct procedure, correct physician, power injector loaded, or not loaded with contrast with 10:42:50 surgical team present. Time Out Concurred by MD and individual staff in procedure. 10:43:00 2 mg VERSED given in lab by Jasmin Rinaldi, RN in Left Antecubital via Peripheral IV. 10:43:49 Case Start 10:43:50 20 mL 1% XYLOCAINE given in lab by Jerald Osborn in Right Groin via Subcutaneous. 10:44:52 50 mcg FENTANYL given in lab by Jasmin Rinaldi, RN via Peripheral IV. 10:45:24 Access site was Right Femoral Artery. 10:45:31 A SHEATH, FR6.5 PRELUDE 11CM FR 6.5 was advanced into the Fem Art (right) using the Percuta neous technique. 10:45:42 HR=85 bpm, TURC=779/76 mmhg, SpO2=96.0 %, Resp=15 B/min 10:47:07 Access site was Right Femoral Vein. 10:47:15 A SHEATH, FR7 TERUMO (10CM) FR 7 was advanced into the Fem Vein (right) using the Percutane ous technique. 10:48:00 A CATHETER, FR.7 BALLOON WEDGE PRESSURE FR 7 was inserted via Fem Vein (right) Recorded Pressure: RA, HR=65, Condition=Condition 1 10:48:19 (Right Atrium) RA 18/17/14 Recorded Pressure: RV, HR=82, Condition=Condition 1 10:48:36 (Right Ventricle) RV 56/15/16 Recorded Pressure: MPA, HR=81, Condition=Condition 1 10:49:32 (Main Pulmonary Artery) MPA 58/36/48 10:50:35 HR=62 bpm, HLVE=831/88 mmhg, SpO2=93.0 %, Resp=10 B/min 10:51:00 Saturation: Site=Ao (Aorta) , O2=95.5 %, Hgb=15.6 gm/dl, Condition=Condition 1. Used in joanie culation. 10:52:17 Pressure channel 2 zeroed. Recorded Pressure: PCW, HR=59, Condition=Condition 1 10:52:34 (Pulmonary Capillary Wedge) PCW 45/45/36 10:54:00 Henning Nelson Catheter Removed A AL 1 INFINITI CATHETER FR 6 was advanced over a wire. OMNIPAQUE, 350 MG, 150ML 150ML was used for 10:54:00 injections. 10:55:32 HR=70 bpm, WQSE=930/84 mmhg, SpO2=93.0 %, Resp=10 B/min 10:59:28 Catheter was removed A PIGTAIL DUAL LUMEN CATHETER FR 6 was advanced over a wire. OMNIPAQUE, 350 MG, 150ML 150ML was used for 10:59:33 injections. Recorded Pressure: LV, HR=68, Condition=Condition 1 11:00:11 (Left Ventricle) LV 131/15/23 11:00:37 HR=63 bpm, NIBP=98/67 mmhg, SpO2=92.0 %, Resp=11 B/min Recorded Pressure: LV, Ao, HR=65, Condition=Condition 1 11:00:51 (Left Ventricle) LV 148/23/35, (Aorta) Ao 91/54/72 Recorded Pressure: LV, Ao, Ao, HR=70, Condition=Condition 1 (Left Ventricle) LV 120/11/23, 11:01:53 (Aorta) Ao 97/48/69, (Aorta) Ao 84/55/67 11:02:15 Saturation: Site=PA (Pulmonary Artery) , O2=71.3 %, Hgb=15.6 gm/dl, Condition=Condition 1. Used in calculation. A JL 4.0 INFINITI CATHETER FR 6 was advanced over a wire. OMNIPAQUE, 350 MG, 150ML 150ML was us ed for 11:04:00 injections. 11:04:20 The LCA was injected and visualized at various angles. OMNIPAQUE, 350 MG, 150ML 150ML used . After removing the current catheter a JR 4.0 INFINITI CATHETER FR 6 was advanced over a WIRE, 3 MMJ .035 180CM 11:05:20 180CM. 11:05:34 HR=66 bpm, YJKA=404/67 mmhg, SpO2=94.0 %, Resp=13 B/min 11:07:23 The RCA was injected and visualized at various angles. OMNIPAQUE, 350 MG, 150ML 150ML used . After removing the current catheter a JR 4.0 GUIDE CATHETER FR 6 was advanced over a WIRE, 3MMJ .035 180CM 11:07:57 180CM. 13 mL ANGIOMAX BOLUS given in lab by Jasmin Rinaldi, KUMAR in Left Antecubital via Peripheral IV. Ordered by Minor, 11:08:00 Jerald. 1.749 mg/kg/hr ANGIOMAX DRIP given in lab by Jasmin Rinaldi, KUMAR in Left Antecubital via Periphe ral IV. Pump/Drip 11:09:00 Flow = 31 ml/hr using NaCl .9 with a concentration of 250 mg in 50 ml. Ordered by Natalya Osborn 11:10:35 HR=58 bpm, VVFI=410/79 mmhg, SpO2=93.0 %, Resp=13 B/min 11:11:10 A WIRE, RUNTHROUGH NS FLOPPY .014 180CM 180CM was inserted via Fem Art (right). 11:11:15 Interventional wire has crossed the lesion A BALLOON, 2.0 X 20MM EUPHORA 20MM was inserted over WIRE, RUNTHROUGH NS FLOPPY .014 180CM 180C M via 11:11:22 the Fem Art (right). A BALLOON, 2.0 X 20MM EUPHORA 20MM over a WIRE, RUNTHROUGH NS FLOPPY .014 180CM 180CM in the Fe m Art 11:11:30 (right) was inflated using a 30 HERON INDEFLATOR at 10 heron for 20 sec. 11:14:24 Balloon Removed. A STENT, 2.5 26MM ALINA 2.5 26MM was advanced through a JR 4.0 GUIDE CATHETER FR 6 over a WIRE, 11:14:29 RUNTHROUGH NS FLOPPY .014 180CM 180CM. A STENT, 2.5 26MM ALINA 2.5 26MM was deployed using a 30 HERON INDEFLATOR at 10 atmospheres for 20 seconds in 11:15:02 the RCA Mid. 11:15:34 HR=61 bpm, HJBZ=557/77 mmhg, SpO2=95.0 %, Resp=13 B/min 11:16:00 Catheter was removed 11:16:30 Case End 11:19:43 In the Fem Art (right) the SHEATH, FR6.5 PRELUDE 11CM FR 6.[address] by Jerald Osborn. 11:19:58 In the Fem Vein (right) the SHEATH, FR7 TERUMO (10CM) FR [address] by Roxie Osborn. 11:20:20 Sterile dressing applied to site 11:20:21 No case complications noted. 11:20:25 Cine recording checked. 11:20:38 HR=51 bpm, TGIY=950/65 mmhg, SpO2=94.0 %, Resp=14 B/min 11:21:24 Implantable Device card placed in patient's chart. 11:21:29 A Left and Right Heart Cath was performed. 11:25:41 HR=62 bpm, QDJS=459/65 mmhg, SpO2=95.0 %, Resp=12 B/min 11:30:00 Patient moved to stretcher 11:34:00 600 mg PLAVIX given in lab by Jasmin Rinaldi RN via Oral. Ordered by Jerald Osborn. End Study - Contrast Media Used In Study Contrast Total Opened (mL) Total Used (mL) Total Wasted (mL) Omnipaque 100 100 0 End Study - Maximum Contrast Load Max Contrast Load (mL) 492.4 End Study - Radiation Exposure Fluoro Time (minutes) 7.0 End Study - Patient Disposition Complications Transferred To Interventional Outcome No Telemetry Bed successful
--- NOTE | 2017-06-07 12:06 | MA ---
cc: ROBY PEREZ MD DATE: 06/07/2017 INDICATION Aortic stenosis. PROCEDURE PERFORMED 1. Fluoroscopy interpretation 2. Left heart catheterization 3. Right heart catheterization 4. Coronary angiography 5. Percutaneous intervention with drug-eluting stent to the right coronary artery. METHOD: The risks, benefits and alternatives were discussed with the patient. The patient understood and consented to the procedure, the patient brought to the catheterization lab, placed on the cardiac catheterization table. Right groin was prepped and draped in sterile fashion. Right groin was anesthetized 2% lidocaine. Right common femoral artery is cannulated 6-Macanese 11 cm sheath was placed out difficulty. Right femoral vein was accessed 5-Macanese 11 cm was placed out difficulty. Right heart catheterization; 7-Macanese [place] pulmonary II catheter was advanced to the right femoral venous sheath to the level of the right atrium under fluoroscopic guidance. Hemodynamics were performed in all chambers while advancing to the pulmonary capillary wedge position. HEMODYNAMIC RESULTS 1. Right atrial pressure measured 18 mmHg. 2. Right ventricular pressure measured 56/15 mmHg. 3. Pulmonary arterial pressure measured 50/36 mmHg. 4. Pulmonary capillary wedge pressure measured 36 mmHg. 5. Cardiac output 10.0 liters per minute. 6. Cardiac index 2.4 liters per minute per meter squared. LEFT HEART CATHETERIZATION: A 6-Macanese AL-1 guide catheter and a straight tipped wire, standard 0.035 was advanced across the valve without difficulty. A 6-Macanese lengthening catheter was then advanced into the left ventricle. Intraoperative hemodynamics measured 120 over 11 mmHg of the left ventricle end-diastolic pressure of 30 mmHg. A simultaneous intraventricular hemodynamics with simultaneous waveform, one shows a left ventricular pressure mean gradient of 42 mmHg. CORONARY ANGIOGRAPHY: 1. Left main coronary angiographically normal. 2. Left anterior descending coronary has minor irregularities. 3. Left circumflex gives rise to an obtuse marginal branch it is codominant gives rise to a posterior descending branch which has minor irregularities. 4. Right coronary codominant with a smaller size posterior descending branch but large right ventricular branch is a 90% stenosis just prior to the bifurcation. PERCUTANEOUS INTERVENTION: Anticipation of possible rapid pacing for transcatheter valvular aortic valvular replacement. We elected to proceed with intervention to avoid ischemic compromise. A right coronary artery was selectively engaged with a 6-Macanese JR-4 guide catheter, 0.014 to 180 cm run-through wire was navigated down to the right ventricular branch. A 2.0 x 20 mm RX balloon was deployed in the proximal right coronary artery with suboptimal result. A 2.5 x 26 mm RX aidan Medtronic stent was then deployed in the right coronary with good result. The wire was removed. Guide catheter removed. Hemo band applied. CONCLUSION 1. Severe right coronary stenosis. 2. Successful percutaneous intervention right coronary artery with drug-eluting stent. 3. Severe aortic stenosis. 4. Elevated right and left filling pressures. 5. Reduced cardiac index. PLAN: I will in a surgical consultation for evaluation for additional open heart surgery although given his cardiomyopathy he would be a intermediate risk. We will also simultaneously evaluate him for a transcatheter aortic valve replacement. MD DAGMAR Alvarado/john /11:28 AM /11:40 AM
[2017-06-07] MEDS ORDERED: BACITRACIN OINT 0.9 GM PKT TOP ONE (13:30)
[2017-06-07] MEDS ORDERED: IOHEXOL 350 MG/ML 100 ML BTL (for Cath Lab) OTHER ONE (15:36)
[2017-06-07] MEDS ORDERED: PILL SPLITTER OTHER PRN (17:00)
[2017-06-07] MEDS ORDERED: ATORVASTATIN 40 MG TAB PO SCH (21:00)
[2017-06-08] VITALS (13 sets, daily range): BP systolic 107–118; BP diastolic 67–81; PULSE 84–135; RESP 18; TEMP 97.4–98.3; O2SAT 95–100
[2017-06-08 04:14] LABS: AUTOMATED NEUTROPHIL # 9.4 TH/MM3 (1.8-7.7); BASOPHIL # 0.1 TH/MM3 (0-0.2); BASOPHIL % 0.7 % (0.0-2.0); EOSINOPHIL # 0.5 TH/MM3 (0-0.4); EOSINOPHIL % 3.9 % (0.0-4.0); HEMATOCRIT 44.6 % (39.0-51.0); HEMO FLAGS DIFF FINAL; LYMPH % 11.5 % (9.0-44.0); LYMPHOCYTE # 1.4 TH/MM3 (1.0-4.8); MEAN CELL VOLUME 90.8 FL (80.0-100.0); MEAN CORPUSCULAR HEMOGLOBIN 30.4 PG (27.0-34.0); MEAN CORPUSCULAR HGB CONC 33.5 % (32.0-36.0); MONO % 6.6 % (0.0-8.0); NEUT % 77.3 % (16.0-70.0); PLATELET COUNT 271 TH/MM3 (150-450); RED BLOOD COUNT 4.91 MIL/MM3 (4.50-5.90); RED CELL DISTRIBUTION WIDTH 13.7 % (11.6-17.2); WHITE BLOOD COUNT 12.1 TH/MM3 (4.0-11.0)
[2017-06-08 04:50] LABS: BICARBONATE 23.9 MEQ/L (21.0-32.0); POTASSIUM 4.1 MEQ/L (3.5-5.1)
[2017-06-08 04:53] LABS: HDL CHOLESTEROL 33.3 MG/DL (40.0-60.0)
--- NOTE | 2017-06-08 06:31 | HHI.PR ---
Subjective Remarks Patient in nad. No n/v/d/c. Denies chest pain says he has no more chest pain or sob after the procedure yesterday. No nausea, diaphoresis or lightheadedness. Davey with pinkish urine, clearing up. No cough, fever or chills. Objective Vitals Vital Signs Date Time Temp Pulse Resp B/P (MAP) Pulse Ox O2 Delivery O2 Flow Rate FiO2 06/08/17 04:00 97.4 96 18 107/81 (90) 100 06/08/17 04:00 97 06/08/17 00:00 96 06/08/17 00:00 97.4 89 18 111/67 (82) 96 06/07/17 20:00 94 06/07/17 20:00 98.2 91 20 118/69 (85) 96 06/07/17 18:00 113 06/07/17 17:00 78 06/07/17 16:00 98.4 89 18 112/97 (102) 98 06/07/17 16:00 84 06/07/17 15:00 59 06/07/17 13:15 97.7 56 17 122/75 (91) 97 I/O 06/07/17 06/07/17 06/07/17 06/08/17 06/08/17 06/08/17 07:00 15:00 23:00 07:00 15:00 23:00 Intake Total 0 ml 350 ml 240 ml Output Total 250 ml 500 ml 1850 ml Balance -250 ml -150 ml -1610 ml Intake Oral 0 ml 350 ml 240 ml Output Urine Total 250 ml 500 ml 1850 ml # Voids 4 # Bowel Movements 0 Result Diagram: 06/08/17 0332 06/08/17 0332 Imaging Last Impressions Chest X-Ray 06/06/17 0554 Signed Impressions: Service Date/Time: June 06:11 - CONCLUSION: Mild chronic appearing interstitial changes. No acute pneumonia or edema seen. Old right rib fractures. Brian Jessica MD Objective Remarks GENERAL: Well-nourished, well-developed patient. CARDIOVASCULAR: Irregular rate and rhythm, 2/6 systolic murmur left sternal border. RESPIRATORY: Breath sounds equal bilaterally. No crackles. No accessory muscle use. GASTROINTESTINAL: Abdomen soft, non-tender, nondistended. EXTREMITIES: 1+ pitting pedal edema bilaterally. NEUROLOGICAL: Awake, alert, and oriented x 3. Non-focal. A/P Problem List: (1) Dilated cardiomyopathy ICD Code: I42.0 - Dilated cardiomyopathy (2) Severe aortic valve stenosis ICD Code: I35.0 - Nonrheumatic aortic (valve) stenosis (3) Dyspnea ICD Code: R06.00 - Dyspnea, unspecified (4) Atrial fibrillation with RVR ICD Code: I48.91 - Unspecified atrial fibrillation Status: Acute Assessment and Plan 77-year-old male presents with dyspnea for 2 weeks Atrial fibrillation with rapid ventricular rate - continue by mouth metoprolol and wean Cardizem drip. Started on Eliquis. Thyroid studies are normal. Severe aortic stenosis with dilated cardiomyopathy and left ventricular ejection fraction of 20% Afib with RVR- Per gum scoring machine operator Dr. Osborn would like the patient transferred to the [facility] for catheterization and further evaluation of the valve. Patient is agreeable to the plan. He has pedal edema on exam but lung tomas are clear. Status post IV Lasix in the ED. Continue Lasix by mouth. S/p cardiac cath 06/07/[address] Osborn Patient with severe right coronary stenosis with PASTRY WRAPPER RCA LADY continue ASA, plavix, metoprolol, sacubitril /valsartan, lasix , statin BPH. Continue Flomax. A catheter was placed in the emergency department will GRUPO davey. Document voiding. DVT prophylaxis on Eliquis. Discussed with the patient, nurse. Problem Qualifiers (1) Dyspnea: Qualified Codes: R06.01 - Orthopnea Yenifer Tejeda MD Jun 08, 2017 06:31
--- NOTE | 2017-06-08 07:01 | PD.CARD.PN ---
Subjective Subjective Remarks no complaints no overnight events Objective Medications Current Medications Medications (Trade) Dose Ordered Sig/Alessandro Route Start Time Stop Time Status Last Admin (NS Flush) 2 ml UNSCH PRN IV FLUSH 06/06/17 09:30 (NS Flush) 2 ml BID IV FLUSH 06/06/17 21:00 06/07/17 21:11 (Lasix) 20 mg DAILY PO 06/07/17 09:00 06/07/17 09:46 (KCl) 10 meq BID PO 06/06/17 21:00 06/07/17 21:11 (Zofran Inj) 4 mg Q6H PRN IVP 06/06/17 09:30 (Tylenol) 650 mg Q6H PRN PO 06/06/17 09:30 (Nada 5-325 Mg) 1 tab Q4H PRN PO 06/06/17 09:30 (Milk Of Magnesia Liq) 30 ml Q12H PRN PO 06/06/17 09:30 (Senokot) 17.2 mg Q12H PRN PO 06/06/17 09:30 (Dulcolax Supp) 10 mg DAILY PRN RECTAL 06/06/17 09:30 (Lactulose Liq) 30 ml DAILY PRN PO 06/06/17 09:30 (Symbicort 160-4.5 Inh) 2 puff BID INH 06/06/17 21:00 06/07/17 21:11 (Flomax) 0.4 mg DAILY PO 06/07/17 09:00 06/07/17 09:46 (Lopressor) 25 mg BID PO 06/07/17 09:00 06/07/17 21:10 (Entresto 24-26 Mg) 1 tab BID PO 06/07/17 09:00 06/07/17 21:10 (Morphine Inj) 2 mg Q30M PRN IV PUSH 06/07/17 11:45 (Aspirin Chew) 81 mg DAILY PO 06/08/17 09:00 (Plavix) 75 mg DAILY PO 06/08/17 09:00 (Ativan Inj) 0.5 mg UNSCH PRN IV PUSH 06/07/17 11:45 06/08/17 11:44 (Atropine Inj) 0.5 mg UNSCH PRN IV PUSH 06/07/17 11:45 Sodium Chloride 250 ml @ 500 mls/hr ONCE PRN IV 06/07/17 11:45 06/08/17 11:44 (Reglan Inj) 10 mg Q4H PRN IV PUSH 06/07/17 11:45 (Xylocaine 1% Inj (50 ml)) 10 ml UNSCH PRN INFIL 06/07/17 11:45 06/08/17 11:44 (Lipitor) 40 mg HS PO 06/07/17 21:00 06/07/17 21:10 (Prinivil) 2.5 mg DAILY PO 06/08/17 09:00 (Pill Splitter) 1 ea UNSCH PRN OTHER 06/07/17 17:00 Vital Signs / I&O Vital Signs Date Time Temp Pulse Resp B/P (MAP) Pulse Ox O2 Delivery O2 Flow Rate FiO2 06/08/17 06:00 90 06/08/17 05:00 89 06/08/17 04:00 97.4 96 18 107/81 (90) 100 06/08/17 04:00 97 06/08/17 03:00 98 06/08/17 02:00 84 06/08/17 01:00 109 06/08/17 00:00 96 06/08/17 00:00 97.4 89 18 111/67 (82) 96 06/07/17 23:00 97 06/07/17 22:00 113 06/07/17 21:00 91 06/07/17 20:00 94 06/07/17 20:00 98.2 91 20 118/69 (85) 96 06/07/17 19:00 87 06/07/17 18:00 113 06/07/17 17:00 78 06/07/17 16:00 98.4 89 18 112/97 (102) 98 06/07/17 16:00 84 06/07/17 15:00 59 06/07/17 13:15 97.7 56 17 122/75 (91) 97 I/O 06/07/17 06/07/17 06/07/17 06/08/17 06/08/17 06/08/17 06:59 14:59 22:59 06:59 14:59 22:59 Intake Total 0 ml 350 ml 240 ml Output Total 250 ml 500 ml 1850 ml Balance -250 ml -150 ml -1610 ml Intake Oral 0 ml 350 ml 240 ml Output Urine Total 250 ml 500 ml 1850 ml # Voids 4 # Bowel Movements 0 Physical Exam GENERAL: Well-nourished, well-developed patient. SKIN: Warm and dry. HEAD: Normocephalic. EYES: No scleral icterus. No injection or drainage. NECK: Supple, trachea midline. No JVD or lymphadenopathy. CARDIOVASCULAR: Regular rate and rhythm 3/6SEM , gallops, or rubs. RESPIRATORY: Breath sounds equal bilaterally. No accessory muscle use. GASTROINTESTINAL: Abdomen soft, non-tender, nondistended. EXTREMITIES: No cyanosis, or edema. NEUROLOGICAL: Awake, alert, and oriented x 3. Non-focal. Laboratory Laboratory Tests Test 06/08/17 03:32 White Blood Count 12.1 TH/MM3 Red Blood Count 4.91 MIL/MM3 Hemoglobin 14.9 GM/DL Hematocrit 44.6 % Mean Corpuscular Volume 90.8 FL Mean Corpuscular Hemoglobin 30.4 PG Mean Corpuscular Hemoglobin Concent 33.5 % Red Cell Distribution Width 13.7 % Platelet Count 271 TH/MM3 Mean Platelet Volume 8.5 FL Neutrophils (%) (Auto) 77.3 % Lymphocytes (%) (Auto) 11.5 % Monocytes (%) (Auto) 6.6 % Eosinophils (%) (Auto) 3.9 % Basophils (%) (Auto) 0.7 % Neutrophils # (Auto) 9.4 TH/MM3 Lymphocytes # (Auto) 1.4 TH/MM3 Monocytes # (Auto) 0.8 TH/MM3 Eosinophils # (Auto) 0.5 TH/MM3 Basophils # (Auto) 0.1 TH/MM3 CBC Comment DIFF FINAL Differential Comment Blood Urea Nitrogen 14 MG/DL Creatinine 0.84 MG/DL Random Glucose 102 MG/DL Calcium Level 8.3 MG/DL Sodium Level 137 MEQ/L Potassium Level 4.1 MEQ/L Chloride Level 103 MEQ/L Carbon Dioxide Level 23.9 MEQ/L Anion Gap 10 MEQ/L Estimat Glomerular Filtration Rate 89 ML/MIN Total Creatine Kinase 34 U/L Triglycerides Level 102 MG/DL Cholesterol Level 174 MG/DL LDL Cholesterol 120 MG/DL HDL Cholesterol 33.3 MG/DL Cholesterol/HDL Ratio 5.22 RATIO Imaging Last Impressions Chest X-Ray 06/06/17 0554 Signed Impressions: Service Date/Time: June 06:11 - CONCLUSION: Mild chronic appearing interstitial changes. No acute pneumonia or edema seen. Old right rib fractures. Brian Jessica MD Assessment and Plan Problem List: (1) Severe aortic valve stenosis ICD Codes: I35.0 - Nonrheumatic aortic (valve) stenosis Plan: Severe with depressed LV systolic function. Intermediate risk for AVR per Dr. Lucio. STS 4% and 1/4 Frail. Given low EF, STS and frailty TAVR would be a reasonable option. Responding to IV diuresis CAD s/p PCI Afib with RVR. needs better rate control Recommendations: 1. Cont diuresis 2. TAVR CTA. 3. Dr. Saha consult today 4. Schedule TAVR as outpatient 5. Cont ASA and Plavix 6. Rate control, Cont OAC (2) CAD (coronary artery disease) ICD Codes: I25.10 - Atherosclerotic heart disease of [place] coronary artery without angina pectoris (3) Combined systolic and diastolic congestive heart failure, NYHA class 4 ICD Codes: I50.40 - Unspecified combined systolic (congestive) and diastolic ( congestive) heart failure (4) Dyspnea ICD Codes: R06.00 - Dyspnea, unspecified (5) Dilated cardiomyopathy ICD Codes: I42.0 - Dilated cardiomyopathy (6) Atrial fibrillation with RVR ICD Codes: I48.91 - Unspecified atrial fibrillation Status: Acute Problem Qualifiers (1) Combined systolic and diastolic congestive heart failure, NYHA class 4: Qualified Codes: I50.43 - Acute on chronic combined systolic (congestive) and diastolic (congestive) heart failure (2) Dyspnea: Qualified Codes: R06.01 - Orthopnea Daniel Kevin MD Jun 08, 2017 07:01
[2017-06-08] MEDS ORDERED: ASPI81CH25 PO (08:14)
[2017-06-08] MEDS ORDERED: SACU1TAB PO (08:14)
[2017-06-08] MEDS ORDERED: ATOR40TA16 PO (08:14)
[2017-06-08] MEDS ORDERED: METO25TA3 PO (08:14)
[2017-06-08] MEDS ORDERED: PLAV75TA29 PO (08:14)
--- NOTE | 2017-06-08 08:17 | HHI.DS ---
Discharge Summary Admission Date Jun 06, 2017 at 07:40 Discharge Date: Jun 08, 2017 Admitting Diagnosis Afib RVR (1) Dilated cardiomyopathy ICD Code: I42.0 - Dilated cardiomyopathy (2) Severe aortic valve stenosis ICD Code: I35.0 - Nonrheumatic aortic (valve) stenosis (3) Dyspnea ICD Code: R06.00 - Dyspnea, unspecified (4) Atrial fibrillation with RVR ICD Code: I48.91 - Unspecified atrial fibrillation Status: Acute Procedures cardiac cath 06/07/[address] Osborn Brief History - From Admission This is a very pleasant 77-year-old male with past medical history of remote atrial fibrillation, asthma, BPH who presented to the ER this morning complaining of shortness of breath 2 weeks. The patient states the symptoms have been getting progressively severe. No palliative factors. Exertion makes the dyspnea worse. He wakes up at 4 or 5:00 in the morning gasping for breath. He denies any chest pain or chest pressure. He does have a history of atrial fibrillation but he states he cannot tell when he is in A. fib. He used to be on anticoagulation. 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 The patient denies any palpitations. He denies noting any pedal edema at home however the emergency department physician noted he had pedal edema. The emergency department he was noted to have atrial fibrillation with a rapid ventricular rate of 130 and was given IV Cardizem bolus and started on Cardizem drip. Chest x-ray showed chronic interstitial changes but no acute edema. The patient was given 80 mg IV of Lasix. This morning he states he is not short of breath at rest but still gets short of breath with exertion. A Davey catheter was placed in the emergency department and he has diuresed about 3 L. CBC/BMP: 06/08/17 0332 06/08/17 0332 Significant Findings Laboratory Tests Test 06/06/17 06:00 06/06/17 06:30 06/07/17 05:28 06/08/17 03:32 White Blood Count 11.1 TH/MM3 (4.0-11.0) 12.1 TH/MM3 (4.0-11.0) Mean Corpuscular Hemoglobin Concent 31.5 % (32.0-36.0) Prothrombin Time 12.0 SEC (9.8-11.6) B-Type Natriuretic Peptide 560 PG/ML (0-100) Random Glucose 121 MG/DL (74-106) Total Bilirubin 2.0 MG/DL (0.2-1.0) Estimat Glomerular Filtration Rate 73 ML/MIN (>89) 80 ML/MIN (>89) Neutrophils (%) (Auto) 77.3 % (16.0-70.0) Neutrophils # (Auto) 9.4 TH/MM3 (1.8-7.7) Eosinophils # (Auto) 0.5 TH/MM3 (0-0.4) Calcium Level 8.3 MG/DL (8.5-10.1) Total Creatine Kinase 34 U/L (39-308) LDL Cholesterol 120 MG/DL (0-99) HDL Cholesterol 33.3 MG/DL (40.0-60.0) Imaging Last Impressions Chest X-Ray 06/06/17 0554 Signed Impressions: Service Date/Time: , June 06, 2017 06:11 - CONCLUSION: Mild chronic appearing interstitial changes. No acute pneumonia or edema seen. Old right rib fractures. Brian Jessica MD PE at Discharge GENERAL: Well-nourished, well-developed patient. CARDIOVASCULAR: Irregular rate and rhythm, 2/6 systolic murmur left sternal border. RESPIRATORY: Breath sounds equal bilaterally. No crackles. No accessory muscle use. GASTROINTESTINAL: Abdomen soft, non-tender, nondistended. EXTREMITIES: 1+ pitting pedal edema bilaterally. NEUROLOGICAL: Awake, alert, and oriented x 3. Non-focal. Hospital Course 77-year-old male presents with dyspnea for 2 weeks. Patient with Afib with RVR, was on Cardizem drip titrated continue metoprolol, also started on apixaban, discussed with Dr Elizondo cardiology continue Plavix, ASA and eliquis at DC With severe aortic stenosis with dilated cardiomyopathy and left ventricular ejection fraction of 20% . CT surgery consulted, patient needs TAVR. Plan for CTA today and f/u with Dr Saha. Schedule TAVR as OP. Patient to have CTA before DC. Severe with depressed LV systolic function. Intermediate risk for AVR per Dr. Lucio. STS 4% and 1/4 Frail. Given low EF, STS and frailty TAVR would be a reasonable option. patient is responding to IV diuresis. With CAD s/p PCI. TAVR CTA before DC . Dr. Saha CTS ff. Schedule TAVR as outpatient Atrial fibrillation with rapid ventricular rate - continue by mouth metoprolol and wean Cardizem drip. Started on Eliquis. Thyroid studies are normal. With CAD S/p cardiac cath 06/07/[address] Osborn. 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 Continue ASA, plavix, metoprolol, sacubitril /valsartan, lasix , statin . Patient also with acute on chronic combined systolic CHF NYHA class 4 with severely reduced EF. BPH. Continue Flomax. A catheter was placed in the emergency department will DC davey. Document voiding. Improved. Patient discharged in stable condition to follow up as OP with PCP and consultants. Pt Condition on Discharge: Stable Discharge Disposition: Discharge Home Discharge Time: > 30 minutes Discharge Instructions DIET: Follow Instructions for: Heart Healthy Diet Activities you can perform: Regular-No Restrictions Follow up Referrals: Cardiology - 1 Week PCP Follow-up - 2-3 Days Surgical - 1 Week with Paulo Saha MD New Medications: Apixaban (Eliquis) 5 Mg Tab 5 MG PO BID for Blood Clot Prevention, #60 TAB 0 Refills Aspirin (Aspirin Low Strength) 81 Mg Chew 81 MG PO DAILY for Blood Clot Prevention, #30 EA Atorvastatin (Atorvastatin) 40 Mg Tab 40 MG PO HS for Cholesterol Management, #30 TAB 1 Refill Clopidogrel (Plavix) 75 Mg Tab 75 MG PO DAILY for Blood Clot Prevention, #30 TAB 1 Refill Furosemide (Furosemide) 20 Mg Tab 20 MG PO DAILY for Blood Pressure Management, #30 TAB Metoprolol Tartrate (Metoprolol Tartrate) 25 Mg Tab 25 MG PO BID for Blood Pressure Management, #30 TAB 1 Refill Sacubitril-Valsartan (Entresto) 24-26 Mg Tab 1 TAB PO BID for Blood Pressure Management, #60 TAB 1 Refill Continued Medications: Fluticasone-Salmeterol Inh (Advair Diskus Inh) 250-50 Mcg/Blist Aer 1 PUFF INH BID, #1 INHALER 0 Refills Rinse mouth after use. Silodosin (Rapaflo) 8 Mg Cap 8 MG PO DAILY for Manage Prostate Problems, #30 CAP 0 Refills Yenifer Tejeda MD Jun 08, 2017 08:17
[2017-06-08] MEDS: POTASSIUM CHLORIDE 10 MEQ CAP PO SCH (08:29)
[2017-06-08] MEDS ORDERED: TAMSULOSIN HCL 0.4 MG CAP PO ONE (08:30)
[2017-06-08] MEDS: SACUBITRIL/VALSARTAN 24 MG-26 MG TAB PO SCH (08:30)
[2017-06-08] MEDS: FUROSEMIDE 20 MG TAB PO SCH (08:31)
[2017-06-08] MEDS: METOPROLOL TARTRATE 25 MG TAB PO SCH (08:31)
[2017-06-08] MEDS: BUDESONIDE-FORMOTEROL 160/4.5 MCG INHALER INH SCH (08:32)
[2017-06-08] MEDS ORDERED: FURO20TA PO (08:43)
[2017-06-08] MEDS ORDERED: APIX5TAB PO (08:43)
[2017-06-08] MEDS ORDERED: LISINOPRIL 5 MG TAB PO SCH (09:00)
[2017-06-08] MEDS ORDERED: ASPIRIN 81 MG CHEW TAB PO SCH (09:00)
[2017-06-08] MEDS ORDERED: CLOPIDOGREL 75 MG TAB PO SCH (09:00)
[2017-06-08] MEDS: SODIUM CHLORIDE 0.9% FLUSH 10 ML FLUSH IV FLUSH SCH (09:00)
[2017-06-08] MEDS ORDERED: TAMSULOSIN HCL 0.4 MG CAP PO SCH (09:00)
[2017-06-08] MEDS ORDERED: METOPROLOL TARTRATE 5 MG/5 ML VIAL IV PUSH ONE (09:15)
[2017-06-08] MEDS ORDERED: IOHEXOL 350 MG/ML 10 ML VIAL (for RAD DIAG) IVCONTRAST ONE (09:53)
--- NOTE | 2017-06-08 12:46 | RADRPT ---
EXAM DATE/TIME: 06/08/2017 10:09 [facility] COMPARISON: No previous studies available for comparison. INDICATIONS : Pre operative aortic valve replacement. IV CONTRAST: 100 cc Omnipaque 350 (iohexol) IV RADIATION DOSE: 28.16 CTDIvol (mGy) MEDICAL HISTORY : Cardiovascular disease. SURGICAL HISTORY : Appendectomy. ENCOUNTER: Initial ACUITY: 1 day PAIN SCALE: 0/10 LOCATION: Bilateral chest TECHNIQUE: Volumetric scanning was performed using a multi-row detector CT scanner. The data was post processed with a variety of visualization algorithms including full volume maximum intensity projection, multi -planar sliding thin slab reformation, curved planar reformation, and surface rendering techniques. Using automated exposure control and adjustment of the mA and/or kV according to patient size, radiat ion dose was kept as low as reasonably achievable to obtain optimal diagnostic quality images. DIC OM format image data is available electronically for review and comparison. FINDINGS: CARDIAC: The coronary system is left dominant. There is moderate diffuse atherosclerotic plaquing. There is been previous stenting of the proximal right coronary. The distal right coronary is diminutiv e in size. AORTIC ROOT/VALVE: There is calcification of the aortic valve and valve leaflets. This is moderate in severity. There ar e 3 possible within the aortic valve. The coronaries arise from the aortic root normally. The aortic root measures 3.2 cm. THORACIC AORTA: The tubular portion of the ascending aorta is normal in caliber measuring 3.5 cm. The arch is normal in caliber with normal anatomic branching of the great vessels. The descending thoracic aorta is norm al in caliber throughout measuring 2.7 cm. There is no significant mural thrombus or atherosclerotic plaquing. ABDOMINAL AORTA: The abdominal aorta is normal in caliber. The celiac and SMA are widely patent. There are single yuly l arteries bilaterally. There is mild bilateral ostial renal stenosis. The infrarenal aorta is modera tely diseased with calcification and mural thrombus. It measures 2.3 cm in max dimension. The MIK is patent. RIGHT ILIAC: The common iliac is normal in caliber measuring 9 mm. There is mild atherosclerotic plaquing. The ext ernal iliac circulation is mildly diseased and widely patent throughout its course. LEFT ILIAC: The left common iliac is widely patent with mild atherosclerotic plaquing. The hypogastric circulatio n is patent. The external iliac circulation is widely patent throughout its course and a sizable vess el. THORAX: There are bilateral pleural effusions. Note is made of an area of consolidation in the right lung bas e. There are COPD changes. No suspicious mass lesions are identified. There are old, healed right-carmel ed rib fractures. ABDOMEN: The solid organs of the abdomen are grossly intact by arterial phase imaging. There is no retroperito melina adenopathy. No free air or free fluid is seen. PELVIS: There are large bilateral inguinal hernias. There is colon herniated into the hernia on the right. Th e prostate is quite large measuring 7 point to buy 6.3 cm. CONCLUSION: 1. Calcification of the aortic annulus and valve leaflets. Size measurements of the aortic root, asce nding aorta and detailed characterization of the aorta and iliac vessels as given above. 2. Left dominant coronary anatomy with advanced coronary atherosclerotic disease. 3. Enlargement of the prostate. Measures at least 7.2 x 6.3 cm. 4. Bilateral pleural effusions. 5. There is an area of consolidation in the posterior aspect of the right lower lobe. Jose Lucero MD on June 08, 2017 at 12:34 Board Certified Radiologist. This report was verified electronically.
--- NOTE | 2017-06-08 13:28 | MB ---
cc: NURYS MARIN MD DATE OF CONSULTATION: 06/08/2017 REFERRING PHYSICIAN: Dr. Osborn. REASON FOR CONSULTATION: Surgical opinion regarding aortic valve pathology. HISTORY Mr. Spencer is a very pleasant 77-year gentleman with a known history of atrial fibrillation who has noticed a progressive symptoms of increasing shortness of breath over the past few weeks. The patient was seen in emergency department in the recent past in [place] and was noted to be in atrial fibrillation with rapid ventricular response, with improvement in his symptomatology and his rhythm. Subsequent echocardiogram revealed severe cardiomyopathy with associated aortic stenosis and moderate mitral regurgitation. He was seen by Dr. Osborn and has undergone the above-mentioned workup. In preparation for treatment of his aortic pathology. He underwent a coronary angiogram yesterday which revealed single-vessel coronary disease for which he underwent a PCI with balloon angioplasty and stenting. Dr. Sanderson has seen him for TAVR capillary consideration and in our office for second opinion. At the present time he is pain free, hemodynamically stable with no progressive symptoms in the hospital. PAST MEDICAL HISTORY 1. Significant for atrial fibrillation with rapid ventricular response as described above. 2. Asthma. 3. BPH. 4. Coronary artery disease status post PCI as described above. 5. History of basal cell carcinoma removed from the scalp. ALLERGIES NO KNOWN DRUG ALLERGIES. FAMILY HISTORY Noncontributory with no identifiable premature coronary artery disease. SOCIAL HISTORY Denies any history of smoking, alcohol use or illicit drug use. MEDICATIONS: 1. Home medications include Silodosin 2. Eliquis 3. Plavix 4. Atorvastatin 5. Metoprolol. 6. Entresol 7. Baby aspirin. 8. Lasix. 9. Advair discus. REVIEW OF SYSTEMS Review of system is as above. All other parameters negative. PHYSICAL EXAMINATION: VITAL SIGNS: Physical examination today he is 180 cm tall, weighs 88 kg, blood pressure is 118/72 with a heart rate of 96 which is regular, respiratory is 80 and he is afebrile. HEAD, EYES, EARS, NOSE, AND THROAT: Normocephalic, atraumatic. Pupils are reactive. Extraocular muscles intact. NECK: No cervical lymphadenopathy, carotid bruits or JVD. CARDIOVASCULAR SYSTEM: irregularly irregular with normal S1-S2 without gallops or rubs. There is a 2/6 systolic ejection murmur at the right parasternal border as well as a 01/06 systolic murmur at the apex radiating to the axilla. LUNGS: Clear to auscultation bilaterally with good exchange. ABDOMEN: The abdomen is soft, nontender, nondistended with bowel sounds, no hepatosplenomegaly. EXTREMITIES: Bilateral lower extremity pulses are intact without cyanosis, edema, no venous varicosities. NEUROLOGIC: Neurologically intact with no focal deficits. IMPRESSION 1. Severe aortic stenosis. 2. Atrial fibrillation with rapid ventricular response. 3. Cardiomyopathy with severe left ventricular dysfunction. 4. Asthma. 5. Congestive heart failure. 6. Moderate myocardial infarction. 7. Benign prostatic hypertrophy. 8. Basal cell carcinoma. PLAN: The clinical, echo and angiographic findings were discussed in detail with the patient and his today. I agree with Dr. Lucio, and Dr. Osborn that his aortic pathology will be best served with a TAVR procedure, given his significant medical co morbidities as well as his severe left ventricular dysfunction. At this point we will continue the workup in that regard with plans to proceed with percutaneous therapy for aortic pathology as indicated. Thank you for allowing me to see this patient. [place] /12:43 PM /1:16 PM MTDDanni
--- NOTE | 2017-06-08 14:20 | EKG ---
Date Performed: 06/08/2017 Time Performed: 05:44:38 PTAGE: 77 years EKG: Atrial fibrillation Inferior/lateral ST-T changes may be due to myocardial ischemia Abnorma l ECG PREVIOUS TRACING : 06/06/2017 05.54 DOCTOR: Daniel Kevin Interpretating Date/Time 06/08/2017 14:15:11
--- NOTE | 2017-06-11 09:35 | RSPPFT ---
DATE OF PROCEDURE: 06/07/17 COMMENTS: The forced vital capacity, FEV1 and FEF 25-75 are all severely reduced. The FEV1/FVC ratio is reduced. IMPRESSION: This is compatible with severe, large and small airways, obstructive lung disease. There may be a restrictive component that could be determined with a total lung capacity.
== END 2017-06-08 12:42 | disposition home or self-care (01) | DRG 246 ==
LOC: PHED 05:37 → PHEDA 07:40 → PH3A 08:18 → HCIS 06-07 00:36
PROVIDERS: ADMIT Hospitalist; ATTEND Hospitalist
PROC: 027034Z Dilation of Coronary Artery, One Artery with Drug-eluting Intraluminal Device, Percutaneous Approach (ICD-10-PCS; 2017-06-07)
PROC: B2111ZZ Fluoroscopy of Multiple Coronary Arteries using Low Osmolar Contrast (ICD-10-PCS; 2017-06-07)
PROC: B2151ZZ Fluoroscopy of Left Heart using Low Osmolar Contrast (ICD-10-PCS; 2017-06-07)
PROC: 4A023N8 Measurement of Cardiac Sampling and Pressure, Bilateral, Percutaneous Approach (ICD-10-PCS; principal; 2017-06-07 11:15)
DX: I42.0 Dilated cardiomyopathy (principal); I21.9 Acute myocardial infarction, unspecified; I50.43 Acute on chronic combined systolic (congestive) and diastolic (congestive) heart failure; I48.91 Unspecified atrial fibrillation; I08.0 Rheumatic disorders of both mitral and aortic valves; N40.0 Benign prostatic hyperplasia without lower urinary tract symptoms; I25.10 Atherosclerotic heart disease of native coronary artery without angina pectoris; J45.909 Unspecified asthma, uncomplicated; Z85.828 Personal history of other malignant neoplasm of skin
CPT/HCPCS: 51702; 71010; 74174; 80048; 80053; 80061; 82550; 82810; 83735; 83880; 84439; 84443; 84484; 85025; 85347; 85610; 85730; 86850; 86900; 86901; 92928; 93005; 93306; 93456; 94010; 96365; 96375; C1725; C1769; C1874; C1887; C1893; J0583; J1644; J1940; J2250; J3010; Q9967

== ENCOUNTER 2017-06-13 05:55 | Inpatient (IN) | payer MEDICARE, BC ==
[2017-06-13] VITALS (7 sets, daily range): BP systolic 96–146; BP diastolic 47–98; PULSE 52–123; RESP 16–18; TEMP 97.9–99.7; O2SAT 97–100
[~2017-06-13 05:55] MED LIST changes: +ADVA250A INH; +APIX5TAB PO; +ASPI81CH25 PO; +ATOR40TA16 PO; -FINA5TAB77; +FURO20TA PO; +METO25TA3 PO; +PLAV75TA29 PO; +SACU1TAB PO
[2017-06-13] MEDS ORDERED: CHLORHEXIDINE GLUCONATE 2 % 1 PACK (2 CLOTHS) TOPICAL PRN (06:30)
[2017-06-13] MEDS ORDERED: ASPIRIN 325 MG TAB PO SCH (06:30)
[2017-06-13] MEDS ORDERED: MUPIROCIN 2% OINT 1 APPLIC/GM SYRINGE EACH NARE PRN (06:30)
[2017-06-13] MEDS: SODIUM CHLOR 0.9% 1000 ML 1,000 ML IV SCH ×3 (06:30→22:30)
[2017-06-13] MEDS ORDERED: POVIDONE IODINE 5% (ANTISEPSIS KIT) EACH NARE PRN (06:30)
[2017-06-13 06:49] LABS: AUTOMATED NEUTROPHIL # 8.8 TH/MM3 (1.8-7.7); BASOPHIL # 0.1 TH/MM3 (0-0.2); BASOPHIL % 1.2 % (0.0-2.0); EOSINOPHIL # 0.5 TH/MM3 (0-0.4); EOSINOPHIL % 4.6 % (0.0-4.0); HEMATOCRIT 41.9 % (39.0-51.0); HEMO FLAGS DIFF FINAL; LYMPH % 14.5 % (9.0-44.0); LYMPHOCYTE # 1.7 TH/MM3 (1.0-4.8); MEAN CELL VOLUME 91.3 FL (80.0-100.0); MEAN CORPUSCULAR HEMOGLOBIN 30.7 PG (27.0-34.0); MEAN CORPUSCULAR HGB CONC 33.6 % (32.0-36.0); MONO % 6.5 % (0.0-8.0); NEUT % 73.2 % (16.0-70.0); PLATELET COUNT 390 TH/MM3 (150-450); RED BLOOD COUNT 4.59 MIL/MM3 (4.50-5.90)
[2017-06-13] MEDS ORDERED: HEPARIN-NS/PF INJ 2,500 ML ONE (06:51)
[2017-06-13] MEDS ORDERED: HEPARIN SODIUM - IV 10,000 UNITS/10 ML VIAL ONE (06:57)
[2017-06-13] MEDS ORDERED: PROTAMINE SULFATE 50 MG/5 ML VIAL ONE (06:57)
[2017-06-13 06:59] LABS: BICARBONATE 28.9 MEQ/L (21.0-32.0); POTASSIUM 4.8 MEQ/L (3.5-5.1)
[2017-06-13 07:00] LABS: APTT (PATIENT) 27.5 SEC (24.3-30.1); PROTHROMBIN TIME - PATIENT 11.1 SEC (9.8-11.6)
[2017-06-13] MEDS ORDERED: CUSTODIOL HTK IRR SOLN 0 ML ONE (07:08)
[2017-06-13] MEDS ORDERED: HEPARIN SODIUM - SQ 10,000 UNITS/ML VIAL ONE (07:08)
[2017-06-13] MEDS: ceFAZolin 2 GM PREMIX 50 ML IV PRN (08:10)
--- NOTE | 2017-06-13 08:49 | MH ---
cc: YEFRI LU DATE OF ADMISSION: 06/13/2017 1941 REASON FOR ADMISSION Elective percutaneous replacement of aortic valve/TAVR in the setting of severe symptomatic aortic stenosis. HISTORY OF PRESENT ILLNESS 77-year-old male with past medical history significant for atrial fibrillation, hypertension, severe LV systolic dysfunction with estimated ejection fraction of 20%, CAD, status post PCI/LADY to right coronary artery, chronic combined heart failure and severe obstructive lung disease, that presents today for transaortic valve replacement. The patient has been diagnosed with severe symptomatic aortic stenosis following recent admission for heart failure. Surface echocardiogram revealed a mean gradient across the aortic valve of 43mmHg, a calculated velocity of 4.2 and a calculated valve area of 0.4 cm2. Given the patient's comorbidities and severe LV dysfunction, he was referred to structural valve team for further management and evaluation. Upon thorough evaluation, he was deemed to be an intermediate risk for open AVR per two independent heart surgeons which recommended TAVR. The patient underwent a TAVR workup which revealed he will be a reasonable candidate for TAVR. PAST MEDICAL HISTORY 1. Atrial fibrillation. 2. Asthma. 3. Hypertension. 4. Hyperlipidemia. 5. Severe LV dysfunction. 6. CAD status post PCI/LADY. 7. Inguinal hernia. ALLERGIES NO KNOWN DRUG ALLERGIES. FAMILY HISTORY Noncontributory. SOCIAL HISTORY Denies smoking, alcohol use or illicit drug use. MEDICATION Home medications: 1. Eliquis. 2. Plavix. 3. Aspirin. 4. Atorvastatin. 5. Metoprolol. 6. Lasix. 7. Advair. 8. Entresto. 9. Rapaflo. REVIEW OF SYSTEMS Review of systems negative except for what is mentioned in the HPI. PHYSICAL EXAMINATION VITAL SIGNS: Temperature 97, respiratory rate 20, heart rate 80, blood pressure 120/80, O2 sats 100% on room air. GENERAL: He is awake, alert, oriented x 3, in no acute distress. NECK: No JVD or carotid bruits. HEART: Irregularly, irregular. There is a 3/6 systolic ejection murmur in the aortic focus. LUNGS: Clear to auscultation bilaterally. No wheezes or rhonchi or rales. ABDOMEN: Soft, nontender, nondistended. Positive bowel sounds. EXTREMITIES: No cyanosis or edema. Pulses throughout. LABORATORY DATA Creatinine 1.16, hemoglobin 14, hematocrit 41.9, platelets 390. STS: 4.05% Frailty 09/05. EKG: Atrial fibrillation with nonspecific ST changes. Interventricular conduction delay PFT: Severe obstructive lung disease. ECHOCARDIOGRAM As mentioned in the H&P. The patient has a severe dysfunction of EF with 20% ejection fraction, calculated aortic valve 0.4, mean gradient of 43, jet velocity of 4.2. LEFT HEART CATH He has obstructive coronary artery disease status post LADY to the right coronary artery. TAVR CTA Shows that the patient has a nodule at the aortic valve annulus. Perimeter 82.5. Annular area is 531. The long annulus diameter is 28.9 and the short annulus diameter is 23.6. The sinus of Valsalva is 33.3. The STJ is 31.1. The left coronary artery height is 11.7. The right coronary height is 18.0. There is no calcification in the LVOT. The aortic valve is trileaflet. Regarding the iliacs theres is mild peripheral vascular disease, no significant obstruction, minimal luminal diameter on the right is 6.9 and on the left is 6.1. ASSESSMENT 77-year-old male with severe symptomatic aortic stenosis with severe LV systolic dysfunction, chronic combined heart failure, presenting today for elective TAVR. The patient has combined heart failure. After being evaluated by the TAVR team, he has been deemed a reasonable candidate for TAVR. Risks, benefits of TAVR include but not limited to complete heart block needing permanent pacemaker, neurovascular trauma, infection, bleeding, stroke, emergent bypass surgery and have been explained to the patient. The patient understands the risks and is willing to proceed. PLAN Keep n.p.o. Right TF 34-mm Evolut R Medtronic Valve MD MARY Bell/ANGELO /7:41 AM 7:55 AM RACHELLE
[2017-06-13] MEDS ORDERED: SUGAMMADEX SODIUM 200 MG/2 ML VIAL IV PUSH ONE ×2 (09:17)
--- NOTE | 2017-06-13 09:47 | PD.OP ---
cc: Daniel Kevin MD; Jerald Osborn MD Operative Report Date of Surgery: Jun 13, 2017 Preoperative Diagnosis: (1) Severe aortic valve stenosis (2) Combined systolic and diastolic congestive heart failure, NYHA class 4 Postoperative Diagnosis: same Procedure: Transcatheter aortic valve replacement with a 34 Corevalve Evolut Percutaneous left and right femoral arterial access with Perclose closure Aortography Fluoroscopy Anesthesia: Dr. Gaxiola Surgeon: Sandra Lucio Co-surgeon - Dr. Elizondo Department Clinician(s): Dr. Osborn Operation and Findings: The risks, benefits, complications, treatment options, and expected outcomes were discussed with the patient. The possibilities of reaction to medication, pulmonary aspiration, perforation of viscus, bleeding, recurrent infection, the need for additional procedures, failure to diagnose a condition, and creating a complication requiring transfusion or operation were discussed with the patient. The patient concurred with the proposed plan, giving informed consent. The site of surgery properly noted/marked. The patient was taken to the hybrid operating room, identified as [facility] and the procedure verified as Transcatheter Aortic Valve Replacement. A Time Out was held and the above information confirmed. Standard monitoring lines and Abraham catheter were placed. General anesthesia was induced. The patient was prepped and draped in a sterile fashion. Initially, left femoral arterial access was acquired using a Seldinger percutaneous technique. The details of this procedure were dictated under separate note by cardiology. Once a pigtail was positioned in the aortic annulus and a temporary transvenous pacemaker wire was placed in the right ventricular apex and tested, the right femoral artery was accessed using a needle followed by a guidewire under fluoroscopic guidance. Serial dilators were used to dilate the right femoral artery to 16 Bulgarian caliber. The 16F Cook sheath was then inserted into the femoral artery up to the distal aorta. Arch aortography was performed to define the implant view. The valve was crossed in a standard manner. A 34 Corevalve Evolut transcatheter aortic valve was then positioned in the annulus and deployed with the patient being paced at 120 beats per minute. Following deployment, the valve apparatus was withdrawn and BLU was performed to assess the valve. The valve had no significant perivalvular leaks. The sheath was withdrawn under direct vision and the right femoral artery was controlled with the prepositioned Perclose sutures. At the end of the operation, all sponge, instruments, and needle counts were correct. The patient was transferred to the CVICU in stable condition. Findings: Patient arrived in AFIB with RVR at ~120-130 and a SBP of 90. Initial EF of 20% . Hemodynamics greatly improved post deployment of the valve. Implants: 34 Corevalve Evolut Complications: none Disposition: to CVICU in stable condition Sandra Lucio MD Jun 13, 2017 09:47
--- NOTE | 2017-06-13 09:53 | PD.PROCEDR ---
Procedure Note Procedure Procedure: Transesophageal Echocardiography Diagnosis: Severe aortic stenosis Indications: Perioperative planning for trans-catheter aortic valve replacement Consent: Obtained Anesthesia: GETA Description of the Procedure: The patient was sedated and mechanically ventilated. The echo probe was inserted easily and without resistance. At the conclusion of the procedure, the echo probe was removed. Please see detailed echocardiogram report for formal findings. Preliminary Findings (not confirmed): Pre-procedure: 1) Severe LV systolic dysfunction, EF ~20% 2) Mild RV dysfunction 3) Mild Mitral Regurgitation 4) Moderate Aortic regurgitation 5) Evidence of [id number] intra-atrial shunting by color flow Doppler 6) No pericardial effusion Post-procedure: 1) s/p successful placement of transcatheter bioprosthetic aortic valve 2) No evidence of bioprosthetic valve stenosis 3) trace perivalvular aortic regurgitation 4) moderate mitral regurgitation 5) [id number] tricuspid regurgitation 6) persistent Severe LV systolic dysfunction 7) persistent mild RV dysfunction 8) no pericardial effusion 9) No dissection of the descending thoracic aorta. The patient tolerated the procedure well with no hemodynamic instability.. There were no immediate complications noted. I personally performed the procedure. Sahil Peterson MD Jun 13, 2017 09:53
[2017-06-13] MEDS ORDERED: SODIUM CHLOR 0.9% 1000 ML INJ 1,000 ML IV SCH (10:06)
--- NOTE | 2017-06-13 10:09 | PD.CONS ---
[facility] Service Critical Care Medicine Consult Requested By Dr. Elizondo Reason for Consult perioperative management of medical comorbidities Primary Care Physician Diony Perez M.D. History of Present Illness This is a 87yM with a history of atrial fibrillation with TIERNEY thrombus diagnosed by CTA, severe LV systolic dysfunction with EF 20%, HTN, CAD s/p recent PCI with LADY to RCA, and severe obstructive lung disease who presents for elective TAVR. Intra-operative events were uncomplicated. Patient arrives to the CVICU extubated in stable condition, somnolent and arousing from anesthesia. no additional information is obtainable from the patient secondary to his arousing from anesthesia. Review of Systems ROS Limitations: Clinical Condition, Altered Mental Status ROS arousing from anesthesia. Past Family Social History Allergies: Coded Allergies: No Known Allergies (Verified , 06/06/17) Past Medical History Atrial fibrillation Asthma Hypertension Hyperlipidemia Severe LV systolic dysfunction Coronary artery disease status post recent PCI with drug-eluting stent to the RCA Past Surgical History Inguinal hernia repair Reported Medications Eliquis Plavix Aspirin Atorvastatin Metoprolol Lasix Advair Interested Rapaflo Active Ordered Medications See MAR Family History Reviewed the chart found to be noncontributory to his acute illness Social History Denied tobacco, EtOH, drugs of abuse Physical Exam Vital Signs Vital Signs Date Time Temp Pulse Resp B/P (MAP) Pulse Ox O2 Delivery O2 Flow Rate FiO2 06/13/17 06:37 98.9 123 17 108/98 (101) 98 Physical Exam GENERAL: Frail elderly male, lying in bed, arousing from anesthesia. No acute distress. HEENT: Normocephalic. Atraumatic. Pupils equal, round, reactive, conjugate. Mucous membranes are moist NECK: Trachea is midline. There is no JVD. Right IJ introducer sheath with transvenous pacer, dressing intact, site clean dry. CHEST: Unlabored. Equal chest rise. Nasal cannula oxygen. CARDIOVASCULAR: Tachycardic rate, irregularly irregular rhythm. A. fib by telemetry. Pacer is not currently pacing, set VVI backup rate of 50 ABDOMEN: Soft, nontender, nondistended. No guarding. MUSCULOSKELETAL: Pulses 2+. No peripheral edema. Bilateral groin incisions with dressings intact, site clean and dry. No evidence of hematoma. Distal pulses dopplerable NEUROLOGICAL: RASS -2. Arousing from anesthesia. Nonfocal. Moves all extremity's. Laboratory Laboratory Tests Test 06/13/17 06:20 White Blood Count 12.0 Red Blood Count 4.59 Hemoglobin 14.1 Hematocrit 41.9 Mean Corpuscular Volume 91.3 Mean Corpuscular Hemoglobin 30.7 Mean Corpuscular Hemoglobin Concent 33.6 Red Cell Distribution Width 14.0 Platelet Count 390 Mean Platelet Volume 7.9 Neutrophils (%) (Auto) 73.2 Lymphocytes (%) (Auto) 14.5 Monocytes (%) (Auto) 6.5 Eosinophils (%) (Auto) 4.6 Basophils (%) (Auto) 1.2 Neutrophils # (Auto) 8.8 Lymphocytes # (Auto) 1.7 Monocytes # (Auto) 0.8 Eosinophils # (Auto) 0.5 Basophils # (Auto) 0.1 CBC Comment DIFF FINAL Differential Comment Prothrombin Time 11.1 Prothromb Time International Ratio 1.0 Activated Partial Thromboplast Time 27.5 Blood Urea Nitrogen 12 Creatinine 1.16 Random Glucose 105 Calcium Level 9.2 Sodium Level 139 Potassium Level 4.8 Chloride Level 104 Carbon Dioxide Level 28.9 Anion Gap 6 Estimat Glomerular Filtration Rate 61 Result Diagram: 06/13/1720 06/13/17619 Assessment and Plan Assessment and Plan Assessment: 77-year-old male postop day 0 status post transcatheter aortic valve replacement. s/p TAVR 06/13 - anticoagulation per Dr. Elizondo - frequent neurovascular and groin checks - close monitoring of uop - aggressive pulmonary toilet. COPD/Asthma - continue home Advair - pulmonary toilet - prn nebs - wean o2 by [place] for goal spo2 > 90% Severe LV systolic dysfunction - goal sbp < 180 - will need home Lasix, but will hold off POD 0 and evaluate closely - judicious mivf Hypertension - hold home antihypertensives, will plan to restart them POD 1 if BP remains stable. Hyperlipidemia - restart home statin BPH - restart Rapaflo Critical Care medicine will continue to follow along as long as patient remains in the CVICU. Code Status Full Code Discussed Condition With Dr. Elizondo, Sahil Pinto MD Jun 13, 2017 10:08
[2017-06-13] MEDS ORDERED: MISC INFORMATION OTHER ONE (10:15)
[2017-06-13] MEDS ORDERED: ATROPINE SULFATE 1 MG/ML VIAL IV PUSH PRN (10:15)
[2017-06-13] MEDS ORDERED: GLUCAGON 1 MG/ML VIAL OTHER PRN (10:15)
[2017-06-13] MEDS ORDERED: RESP: ALBUTEROL 2.5 MG/3 ML NEB (PRN) NEB (10:15)
[2017-06-13] MEDS ORDERED: DEXTROSE 50% IN WATER 50 ML VIAL(D50) IV PUSH PRN (10:15)
[2017-06-13] MEDS ORDERED: ACETAMINOPHEN 325 MG TAB PO PRN (10:15)
--- NOTE | 2017-06-13 10:31 | PD.CARD ---
Cardiology Procedure Note Procedure Name: Right TF TAVR Procedure Date: Jun 13, 2017 Procedure Note: DATE OF : 1940 OPERATIVE DIAGNOSIS: 1. Severe symptomatic aortic stenosis with depressed LV systolic function. 2. Shortness of breath, Chronic combined heart failure, [place] [employer] of 4. 3. Hypertension. 4. CAD s/p PCI/LADY to RCA 5. Asthma 6. Atrial Fibrillation on chronic oral anticoagulation POSTOPERATIVE DIAGNOSIS 1. Severe symptomatic aortic stenosis with depressed LV systolic function. 2. Shortness of breath, Chronic combined heart failure, [place] [employer] of 4. 3. Hypertension. 4. CAD s/p PCI/LADY to RCA 5. Asthma 6. Atrial Fibrillation on chronic oral anticoagulation OPERATIVE PROCEDURE Left transfemoral transaortic valve replacement with a 34 mm Evolut R Medtronic valve, aortic root angiogram. Placement of a pigtail and an AL2 catheter for angiography. Temporary pacemaker insertion. Perclose right common femoral arteries. Mynx left common femoral arteries ANESTHESIA Dr. Gaxiola SURGEON: Dr. Sandra Lucio PREPARATORY TECHNICIAN: sheet pile driver operator: Dr. Caro Hurley. Secondary Vice President Supply Chain: Dr. Jerald Osborn. ECHO-SUPPORT: Dr. Garland Peterson INDICATIONS 77 year-old male with severe symptomatic aortic stenosis with progressive symptoms of heart failure NYHA IV. The patient has been evaluated for aortic valve replacement. It was felt that he will be an intermediate risk for conventional aortic valve replacement on the basis of frailty, STS score, severe LV systolic dysfunction and comorbidities. He has been evaluated and accepted for transcatheter aortic valve replacement after extensive review of patient's chart. The risks of the procedure have been discussed with the patient at length and consents have been signed and to proceed as planned. DESCRIPTION OF PROCEDURE Under general anesthesia a transesophageal echocardiogram was placed in the esophagus which was used throughout the procedure to evaluate aortic valve as well as the other valve structures. Intraoperative transesophageal echo demonstrated severe aortic stenosis with a depressed ejection fraction with an estimated ejection fraction of 20%. Then using 1% lidocaine for local anesthesia and a micropuncture kit, the left femoral artery entered percutaneously and a two 5-South African sheath was inserted. Then pigtail catheter was advanced over a 0.035 wire around the arch of the aorta and placed in the noncoronary cuff for aortic and an 5Fr AL2 was placed in the left coronary cusp in order to get multiple views for deployment of the valve. Then using 1% lidocaine for local anesthesia a micropuncture kit, the valve arterial access site was accessed. Angiogram with angiography was performed through the micropuncture sheath to confirm adequate position and/or any complications. Then 8-South African sheath was inserted into the left common femoral artery. This was followed by Preclosing the artery with three Perclose devices. The patient was then fully heparinized with an ACT checked. Then a super core 0.05 wire was advanced into the ascending aorta, followed by dilating the common femoral artery with a 10- [place] African dilator. This was followed by introduction of a 16-South African sheath then we used an AL-2 over a straight 300 cm stiff, Amplatz wire to cross the aortic valve. The kit was left in the mid left ventricular cavity. Then a 6-South African pigtail was inserted over the wire. This was followed by exchanging the wire with a Confida wire. Then the after removing the 16- [place] sheath the valve was inserted sheathless thru the right common femoral artery. After confirmation of position of the device the valve was self expanded. Post deployment there was a trace sign PVL on transesophageal echocardiogram. The patient tolerated the procedure well without complications. The catheter was removed with pullback the system to the aortic aorta and then it was removed from the left femoral artery and Perclose. Finally the pigtail and AL2 were removed. The the sheath on the left side were removed and pressure and Mynx. This concluded the operation. A postoperative transesophageal echocardiogram demonstrated adequate function of the aortic bioprosthesis. The aortic valve area postprocedure was 2.26. The post implant mean gradient 6mmHg. The post aortic velocity 1.7. There was trace AI. COMPLICATIONS: None. DISPOSITION Admit to CICU a stable condition for post cath care. Dual antiplatelet agent with aspirin and Plavix. Early extubation, out of bed after bedrest. The temporary pacemaker to remain in place for the next 24 hours. Telemetry monitoring, EP consult per protocol, resume home medications. MD MARY Bell/john /4:02 PM /5:06 PM Daniel Kevin MD Jun 13, 2017 10:31
[2017-06-13] MEDS ORDERED: MIDAZOLAM HCL 2 MG/2 ML VIAL IV ONE (12:00)
[2017-06-13] MEDS ORDERED: ROCURONIUM INJ 50 MG/5 ML SYRINGE IV PUSH ONE (12:00)
[2017-06-13] MEDS ORDERED: PHENYLEPH/NS 1000 MCG/10 ML SYR IV ONE (12:00)
[2017-06-13] MEDS ORDERED: PROPOFOL 200 MG/20 ML AMP IV ONE (12:00)
[2017-06-13] MEDS ORDERED: PHENYLEPHRINE HCL 10 MG/ML VIAL IV ONE (12:00)
[2017-06-13] MEDS ORDERED: GLYCOPYRROLATE 1 MG/5 ML SYRINGE IV PUSH ONE (12:00)
[2017-06-13] MEDS ORDERED: LIDOCAINE HCL 1% PF 5 ML AMPULE OTHER ONE (12:00)
--- NOTE | 2017-06-13 12:25 | EKG ---
Date Performed: 06/13/2017 Time Performed: 06:51:04 PTAGE: 77 years EKG: Atrial fibrillation with rapid ventricular response. Inferior T wave changes are nonspecifi c Abnormal ECG PREVIOUS TRACING : 06/08/2017 05.44 Compared to prior tracing no significant change DOCTOR: Alyse Mendez Interpretating Date/Time 06/13/2017 12:22:19
[2017-06-13] MEDS ORDERED: METOPROLOL TARTRATE 25 MG TAB PO SCH ×2 (12:30→21:00)
[2017-06-13] MEDS: CLOPIDOGREL 75 MG TAB PO SCH (12:44)
[2017-06-13] MEDS: APIXABAN 5 MG TABLET PO SCH ×2 (15:27→21:34)
[2017-06-13] MEDS ORDERED: METOPROLOL TARTRATE 5 MG/5 ML VIAL ONE ×2 (16:44→16:49)
[2017-06-13] MEDS ORDERED: METOPROLOL TARTRATE 5 MG/5 ML VIAL IV PUSH ONE (17:15)
[2017-06-13] MEDS ORDERED: METOPROLOL TARTRATE 25 MG TAB PO ONE (17:15)
[2017-06-13] MEDS ORDERED: METOPROLOL TARTRATE 5 MG/5 ML VIAL IV PUSH PRN (17:15)
[2017-06-13] MEDS: SACUBITRIL/VALSARTAN 24 MG-26 MG TAB PO SCH (21:34)
[2017-06-13] MEDS: ATORVASTATIN 40 MG TAB PO SCH (21:34)
[2017-06-13] MEDS: BUDESONIDE-FORMOTEROL 160/4.5 MCG INHALER INH SCH (21:35)
[2017-06-14] VITALS (12 sets, daily range): BP systolic 87–121; BP diastolic 50–82; PULSE 63–98; RESP 16–18; TEMP 98–98.9; O2SAT 92–99
[2017-06-14 05:09] LABS: HEMATOCRIT 35.6 % (39.0-51.0); MEAN CELL VOLUME 90.1 FL (80.0-100.0); MEAN CORPUSCULAR HEMOGLOBIN 30.1 PG (27.0-34.0); MEAN CORPUSCULAR HGB CONC 33.4 % (32.0-36.0); PLATELET COUNT 312 TH/MM3 (150-450); RED BLOOD COUNT 3.95 MIL/MM3 (4.50-5.90); RED CELL DISTRIBUTION WIDTH 13.8 % (11.6-17.2); REVIEW FLAG FINAL; WHITE BLOOD COUNT 12.2 TH/MM3 (4.0-11.0)
[2017-06-14] MEDS: SODIUM CHLOR 0.9% 1000 ML 1,000 ML IV SCH ×2 (06:30→14:30)
[2017-06-14] MEDS ORDERED: DILTIAZEM HCL 25 MG/5 ML VIAL ONE (08:09)
[2017-06-14 08:15] LABS: BLOOD UREA NITROGEN 9 MG/DL (7-18)
[2017-06-14 08:16] LABS: ALKALINE PHOSPHATASE 103 U/L (45-117); ALT (GPT) 19 U/L (12-78); AST (GOT) 13 U/L (15-37); CHLORIDE 103 MEQ/L (98-107); GLOMERULAR FILTRATION RATE 115 ML/MIN (>89); POTASSIUM 4.3 MEQ/L (3.5-5.1); SODIUM (NA) 135 MEQ/L (136-145)
[2017-06-14 08:17] LABS: ANION GAP 7 MEQ/L (5-15); BICARBONATE 25.1 MEQ/L (21.0-32.0)
--- NOTE | 2017-06-14 08:18 | PD.CARD.PN ---
Subjective Subjective Remarks no complaints Ambulating without difficulty Afib with RVR after breakfast Objective Medications Current Medications Medications (Trade) Dose Ordered Sig/Alessandro Route Start Time Stop Time Status Last Admin Sodium Chloride 1,000 ml @ 125 mls/hr Q8H IV 06/13/17 06:30 06/13/17 15:27 Cefazolin Sodium/ Dextrose 50 ml @ 100 mls/hr MANNEQUIN SANDER AND FINISHER PRN IV 06/13/17 06:30 06/16/17 06:29 06/13/17 08:10 (Betadine 5% Antisepsis Kit) 1 applic MANNEQUIN SANDER AND FINISHER PRN EACH NARE 06/13/17 06:30 06/16/17 06:29 06/13/17 06:41 (Bactroban Nasal 2% Oint) 1 applic MANNEQUIN SANDER AND FINISHER PRN EACH NARE 06/13/17 06:30 06/16/17 06:29 (Chlorhexidine 2% Cloth) 3 pack MANNEQUIN SANDER AND FINISHER PRN TOPICAL 06/13/17 06:30 06/16/17 06:29 06/13/17 06:41 (Tylenol) 650 mg Q4H PRN PO 06/13/17 10:15 06/14/17 10:14 (Atropine Inj) 0.5 mg UNSCH PRN IV PUSH 06/13/17 10:15 06/14/17 10:14 (Aspirin Chew) 81 mg DAILY PO 06/14/17 09:00 (Plavix) 75 mg DAILY PO 06/13/17 12:00 06/13/17 12:44 (D50w (Vial) Inj) 50 ml UNSCH PRN IV PUSH 06/13/17 10:15 (Glucagon Inj) 1 mg UNSCH PRN OTHER 06/13/17 10:15 (Albuterol Neb) 2.5 mg Q2HR NEB PRN NEB 06/13/17 10:15 (Lipitor) 40 mg HS PO 06/13/17 21:00 06/13/17 21:34 (Symbicort 160-4.5 Inh) 2 puff BID INH 06/13/17 21:00 06/13/17 21:35 (Flomax) 0.4 mg DAILY PO 06/14/17 09:00 (Eliquis) 5 mg BID PO 06/13/17 13:00 06/13/17 21:34 (Entresto 24-26 Mg) 1 tab BID PO 06/13/17 21:00 06/13/17 21:34 (Lopressor) 50 mg BID PO 06/13/17 21:00 06/13/17 21:34 Vital Signs / I&O Vital Signs Date Time Temp Pulse Resp B/P (MAP) Pulse Ox O2 Delivery O2 Flow Rate FiO2 06/14/17 07:00 95 06/14/17 07:00 98.0 95 18 111/82 (92) 98 121/50 (73) 06/14/17 03:00 98.3 76 16 108/65 (79) 99 118/51 (73) 06/14/17 03:00 76 06/13/17 23:00 84 06/13/17 23:00 98.2 84 16 116/71 (86) 99 114/47 (69) 06/13/17 21:30 97 Nasal Cannula 2.00 06/13/17 19:00 99.7 52 16 110/66 (81) 98 121/48 (72) 06/13/17 19:00 52 06/13/17 15:00 98.8 117 18 146/60 (88) 99 06/13/17 15:00 117 06/13/17 11:00 97.9 98 18 137/61 (86) 99 06/13/17 09:45 97.9 93 16 96/47 (63) 100 06/13/17 09:45 93 I/O 06/13/17 06/13/17 06/13/17 06/14/17 06/14/17 06/14/17 06:59 14:59 22:59 06:59 14:59 22:59 Intake Total 2000 ml 925 ml 240 ml Output Total 300 ml 1050 ml 515 ml Balance 1700 ml -125 ml -275 ml Intake Oral 400 ml 240 ml IV Total 525 ml 0 ml Other 2000 ml Output Urine Total 300 ml 1050 ml 515 ml Stool Total 0 ml Physical Exam GENERAL: Well-nourished, well-developed patient. SKIN: Warm and dry. HEAD: Normocephalic. EYES: No scleral icterus. No injection or drainage. NECK: Supple, trachea midline. No JVD or lymphadenopathy. CARDIOVASCULAR:Irr Irr without murmurs, gallops, or rubs. RESPIRATORY: Breath sounds equal bilaterally. No accessory muscle use. Bilateral rales at bases GASTROINTESTINAL: Abdomen soft, non-tender, nondistended. EXTREMITIES: No cyanosis, or edema. NEUROLOGICAL: Awake, alert, and oriented x 3. Non-focal. Laboratory Laboratory Tests Test 06/14/17 04:50 White Blood Count 12.2 TH/MM3 Red Blood Count 3.95 MIL/MM3 Hemoglobin 11.9 GM/DL Hematocrit 35.6 % Mean Corpuscular Volume 90.1 FL Mean Corpuscular Hemoglobin 30.1 PG Mean Corpuscular Hemoglobin Concent 33.4 % Red Cell Distribution Width 13.8 % Platelet Count 312 TH/MM3 Mean Platelet Volume 7.5 FL Assessment and Plan Problem List: (1) Severe aortic valve stenosis ICD Codes: I35.0 - Nonrheumatic aortic (valve) stenosis Plan: s/p Right TF TAVR 34mm Evolut. Access sites no hematoma, pulses throughout Acute on chronic combined systolic heart failure on exam Afib with RVR asymptomatic, hemodynamically stable Access sites no hematoma, pulses throughout HCT down likely hemodilution New LBBB Recommendations: 1. D/C art line 2. EP follow up 3. Lopressor increase to 50mg PO QID 4. Amio 150mg IV bolus 5. Cont ASA, Plavix and Eliquis 6. Encourage incentive spirometry and early ambulation 7. Lasix 20mg IV x1 8. Awaiting EP consult (2) Dyspnea ICD Codes: R06.00 - Dyspnea, unspecified (3) Dilated cardiomyopathy ICD Codes: I42.0 - Dilated cardiomyopathy (4) CAD (coronary artery disease) ICD Codes: I25.10 - Atherosclerotic heart disease of [place] coronary artery without angina pectoris (5) Combined systolic and diastolic congestive heart failure, NYHA class 4 ICD Codes: I50.40 - Unspecified combined systolic (congestive) and diastolic ( congestive) heart failure Daniel Kevin MD Jun 14, 2017 08:18
[2017-06-14] MEDS ORDERED: AMIODARONE 150 MG/D5W 97 ML BOLUS 10 MINUTES IV ONE ×2 (08:45)
[2017-06-14] MEDS: BUDESONIDE-FORMOTEROL 160/4.5 MCG INHALER INH SCH ×2 (08:51→21:37)
[2017-06-14] MEDS: CLOPIDOGREL 75 MG TAB PO SCH (08:51)
[2017-06-14] MEDS: TAMSULOSIN HCL 0.4 MG CAP PO SCH (08:51)
[2017-06-14] MEDS: APIXABAN 5 MG TABLET PO SCH ×2 (08:51→21:05)
[2017-06-14] MEDS: ASPIRIN 81 MG CHEW TAB PO SCH (08:51)
[2017-06-14] MEDS: SACUBITRIL/VALSARTAN 24 MG-26 MG TAB PO SCH ×2 (08:52→21:37)
--- NOTE | 2017-06-14 08:59 | EKG ---
Date Performed: 06/14/2017 Time Performed: 04:43:32 PTAGE: 77 years EKG: Atrial fibrillation Right axis deviation Nonspecific intraventricular conduction delay Nons pecific ST/T changes Abnormal ECG PREVIOUS TRACING : 06/13/2017 06.51 Compared to previous tracing, QRS duration has increased. DOCTOR: Brenden Bravo Interpretating Date/Time 06/14/2017 08:57:39
[2017-06-14] MEDS ORDERED: METOPROLOL TARTRATE 25 MG TAB PO SCH (09:00)
[2017-06-14] MEDS ORDERED: METOPROLOL TARTRATE 50 MG TAB PO SCH (09:00)
[2017-06-14] MEDS ORDERED: FUROSEMIDE 20 MG/2 ML VIAL IV PUSH ONE (09:00)
[2017-06-14] MEDS ORDERED: DILTIAZEM HCL 25 MG/5 ML VIAL IV PUSH ONE (10:00)
--- NOTE | 2017-06-14 10:00 | PD.CARD.PN ---
Subjective Subjective Remarks no complaints Ambulating without difficulty Afib with RVR after breakfast Objective Medications Current Medications Medications (Trade) Dose Ordered Sig/Alessandro Route Start Time Stop Time Status Last Admin Sodium Chloride 1,000 ml @ 125 mls/hr Q8H IV 06/13/17 06:30 06/13/17 15:27 Cefazolin Sodium/ Dextrose 50 ml @ 100 mls/hr BENDING PRESS OPERATOR PRN IV 06/13/17 06:30 06/16/17 06:29 06/13/17 08:10 (Betadine 5% Antisepsis Kit) 1 applic BENDING PRESS OPERATOR PRN EACH NARE 06/13/17 06:30 06/16/17 06:29 06/13/17 06:41 (Bactroban Nasal 2% Oint) 1 applic BENDING PRESS OPERATOR PRN EACH NARE 06/13/17 06:30 06/16/17 06:29 (Chlorhexidine 2% Cloth) 3 pack BENDING PRESS OPERATOR PRN TOPICAL 06/13/17 06:30 06/16/17 06:29 06/13/17 06:41 (Tylenol) 650 mg Q4H PRN PO 06/13/17 10:15 06/14/17 10:14 (Atropine Inj) 0.5 mg UNSCH PRN IV PUSH 06/13/17 10:15 06/14/17 10:14 (Aspirin Chew) 81 mg DAILY PO 06/14/17 09:00 06/14/17 08:51 (Plavix) 75 mg DAILY PO 06/13/17 12:00 06/14/17 08:51 (D50w (Vial) Inj) 50 ml UNSCH PRN IV PUSH 06/13/17 10:15 (Glucagon Inj) 1 mg UNSCH PRN OTHER 06/13/17 10:15 (Albuterol Neb) 2.5 mg Q2HR NEB PRN NEB 06/13/17 10:15 (Lipitor) 40 mg HS PO 06/13/17 21:00 06/13/17 21:34 (Symbicort 160-4.5 Inh) 2 puff BID INH 06/13/17 21:00 06/14/17 08:51 (Flomax) 0.4 mg DAILY PO 06/14/17 09:00 06/14/17 08:51 (Eliquis) 5 mg BID PO 06/13/17 13:00 06/14/17 08:51 (Entresto 24-26 Mg) 1 tab BID PO 06/13/17 21:00 06/14/17 08:52 (Lopressor) 50 mg QID PO 06/14/17 09:00 06/14/17 09:12 (Cardizem Inj) 10 mg NOW ONCE IV PUSH 06/14/17 10:00 06/14/17 10:01 Vital Signs / I&O Vital Signs Date Time Temp Pulse Resp B/P (MAP) Pulse Ox O2 Delivery O2 Flow Rate FiO2 06/14/17 08:51 127 141/69 06/14/17 07:20 98 Nasal Cannula 2.00 06/14/17 07:00 95 06/14/17 07:00 98.0 95 18 111/82 (92) 98 121/50 (73) 06/14/17 03:00 98.3 76 16 108/65 (79) 99 118/51 (73) 06/14/17 03:00 76 06/13/17 23:00 84 06/13/17 23:00 98.2 84 16 116/71 (86) 99 114/47 (69) 06/13/17 21:30 97 Nasal Cannula 2.00 06/13/17 19:00 99.7 52 16 110/66 (81) 98 121/48 (72) 06/13/17 19:00 52 06/13/17 15:00 98.8 117 18 146/60 (88) 99 06/13/17 15:00 117 06/13/17 11:00 97.9 98 18 137/61 (86) 99 I/O 06/13/17 06/13/17 06/13/17 06/14/17 06/14/17 06/14/17 07:00 15:00 23:00 07:00 15:00 23:00 Intake Total 2000 ml 925 ml 240 ml 100 ml Output Total 300 ml 1050 ml 515 ml Balance 1700 ml -125 ml -275 ml 100 ml Intake Oral 400 ml 240 ml IV Total 525 ml 0 ml 100 ml Other 2000 ml Output Urine Total 300 ml 1050 ml 515 ml Stool Total 0 ml Physical Exam GENERAL: Well-nourished, well-developed patient. SKIN: Warm and dry. HEAD: Normocephalic. EYES: No scleral icterus. No injection or drainage. NECK: Supple, trachea midline. No JVD or lymphadenopathy. CARDIOVASCULAR:Irr Irr without murmurs, gallops, or rubs. RESPIRATORY: Breath sounds equal bilaterally. No accessory muscle use. Bilateral rales at bases GASTROINTESTINAL: Abdomen soft, non-tender, nondistended. EXTREMITIES: No cyanosis, or edema. NEUROLOGICAL: Awake, alert, and oriented x 3. Non-focal. Laboratory Laboratory Tests Test 06/14/17 04:50 White Blood Count 12.2 TH/MM3 Red Blood Count 3.95 MIL/MM3 Hemoglobin 11.9 GM/DL Hematocrit 35.6 % Mean Corpuscular Volume 90.1 FL Mean Corpuscular Hemoglobin 30.1 PG Mean Corpuscular Hemoglobin Concent 33.4 % Red Cell Distribution Width 13.8 % Platelet Count 312 TH/MM3 Mean Platelet Volume 7.5 FL Blood Urea Nitrogen 9 MG/DL Creatinine 0.67 MG/DL Random Glucose 98 MG/DL Total Protein 5.7 GM/DL Albumin 2.8 GM/DL Calcium Level 8.6 MG/DL Alkaline Phosphatase 103 U/L Aspartate Amino Transf (AST/SGOT) 13 U/L Alanine Aminotransferase (ALT/SGPT) 19 U/L Total Bilirubin 1.0 MG/DL Sodium Level 135 MEQ/L Potassium Level 4.3 MEQ/L Chloride Level 103 MEQ/L Carbon Dioxide Level 25.1 MEQ/L Anion Gap 7 MEQ/L Estimat Glomerular Filtration Rate 115 ML/MIN Assessment and Plan Problem List: (1) Severe aortic valve stenosis ICD Codes: I35.0 - Nonrheumatic aortic (valve) stenosis (2) Dyspnea ICD Codes: R06.00 - Dyspnea, unspecified (3) Dilated cardiomyopathy ICD Codes: I42.0 - Dilated cardiomyopathy (4) CAD (coronary artery disease) ICD Codes: I25.10 - Atherosclerotic heart disease of [place] coronary artery without angina pectoris (5) Combined systolic and diastolic congestive heart failure, NYHA class 4 ICD Codes: I50.40 - Unspecified combined systolic (congestive) and diastolic ( congestive) heart failure Daniel Kevin MD Jun 14, 2017 10:00
[2017-06-14] MEDS ORDERED: DILT31TA PO (10:04)
--- NOTE | 2017-06-14 10:08 | HHI.DS ---
Discharge Summary Admission Date Jun 13, 2017 at 05:55 Admitting Diagnosis Severe (1) Dilated cardiomyopathy ICD Codes: I42.0 - Dilated cardiomyopathy (2) CAD (coronary artery disease) ICD Codes: I25.10 - Atherosclerotic heart disease of [place] coronary artery without angina pectoris (3) Dyspnea ICD Codes: R06.00 - Dyspnea, unspecified (4) Severe aortic valve stenosis Diagnosis: Principal ICD Codes: I35.0 - Nonrheumatic aortic (valve) stenosis (5) Combined systolic and diastolic congestive heart failure, NYHA class 4 ICD Codes: I50.40 - Unspecified combined systolic (congestive) and diastolic ( congestive) heart failure Procedures Right TF TAVR 34mm Evolut Brief History 77 y/o with severe symptomatic and severe LV dysfunction CBC/BMP: 06/14/17 0450 06/14/17 0450 Significant Findings Laboratory Tests Test 06/13/17 06:20 06/14/17 04:50 White Blood Count 12.0 TH/MM3 (4.0-11.0) 12.2 TH/MM3 (4.0-11.0) Neutrophils (%) (Auto) 73.2 % (16.0-70.0) Eosinophils (%) (Auto) 4.6 % (0.0-4.0) Neutrophils # (Auto) 8.8 TH/MM3 (1.8-7.7) Eosinophils # (Auto) 0.5 TH/MM3 (0-0.4) Estimat Glomerular Filtration Rate 61 ML/MIN (>89) Red Blood Count 3.95 MIL/MM3 (4.50-5.90) Hemoglobin 11.9 GM/DL (13.0-17.0) Hematocrit 35.6 % (39.0-51.0) Total Protein 5.7 GM/DL (6.4-8.2) Albumin 2.8 GM/DL (3.4-5.0) Aspartate Amino Transf (AST/SGOT) 13 U/L (15-37) Sodium Level 135 MEQ/L (136-145) PE at Discharge GENERAL: Well-nourished, well-developed patient. SKIN: Warm and dry. HEAD: Normocephalic. EYES: No scleral icterus. No injection or drainage. NECK: Supple, trachea midline. No JVD or lymphadenopathy. CARDIOVASCULAR: Regular rate and rhythm without murmurs, gallops, or rubs. RESPIRATORY: Breath sounds equal bilaterally. No accessory muscle use. GASTROINTESTINAL: Abdomen soft, non-tender, nondistended. EXTREMITIES: No cyanosis, or edema. NEUROLOGICAL: Awake, alert, and oriented x 3. Non-focal. Hospital Course He underwent successful Right TF TAVR with a 34mm Evolut Valve. Refer to OP report for details. Acute on chronic systolic heart failure tx with IV Lasix. EP evaluated per protocol. Ambulating without difficulty no CV complaints. Stable to d/c home today. Pt Condition on Discharge: Good Discharge Disposition: Discharge Home Discharge Instructions DIET: Follow Instructions for: As Tolerated, No Restrictions Activities you can perform: Regular-No Restrictions New Medications: Diltiazem (Cardizem) 30 Mg Tab 30 MG PO Q6HR for Angina for 30 Days, #30 TAB Continued Medications: Apixaban (Eliquis) 5 Mg Tab 5 MG PO BID for Blood Clot Prevention, #60 TAB 0 Refills Aspirin (Aspirin Low Strength) 81 Mg Chew 81 MG PO DAILY for Blood Clot Prevention, #30 EA Atorvastatin (Atorvastatin) 40 Mg Tab 40 MG PO HS for Cholesterol Management, #30 TAB 1 Refill Clopidogrel (Plavix) 75 Mg Tab 75 MG PO DAILY for Blood Clot Prevention, #30 TAB 1 Refill Fluticasone-Salmeterol Inh (Advair Diskus Inh) 250-50 Mcg/Blist Aer 1 PUFF INH BID, #1 INHALER 0 Refills Rinse mouth after use. Furosemide (Furosemide) 20 Mg Tab 20 MG PO DAILY for Blood Pressure Management, #30 TAB Sacubitril-Valsartan (Entresto) 24-26 Mg Tab 1 TAB PO BID for Blood Pressure Management, #60 TAB 1 Refill Silodosin (Rapaflo) 8 Mg Cap 8 MG PO DAILY for Manage Prostate Problems, #30 CAP 0 Refills Discontinued Medications: Metoprolol Tartrate (Metoprolol Tartrate) 25 Mg Tab 25 MG PO BID for Blood Pressure Management, #30 TAB 1 Refill Daniel Kevin MD Jun 14, 2017 10:07
[2017-06-14] MEDS ORDERED: DILTIAZEM HCL 30 MG TAB PO SCH (12:00)
--- NOTE | 2017-06-14 15:47 | EKG ---
Date Performed: 06/14/2017 Time Performed: 11:56:34 PTAGE: 77 years EKG: Atrial fibrillation IV conduction defect Possible lateral infarct - age undetermined Possib le anterior infarct - age undetermined Inferior T wave changes are nonspecific Low QRS voltages in li mb leads Abnormal ECG No significant change from prior electrocardiogram. PREVIOUS TRACING : 06/14/2017 04.43 DOCTOR: Bob Jeffries Interpretating Date/Time 06/14/2017 15:45:51
--- NOTE | 2017-06-14 16:04 | MB ---
cc: FRANCY DIANA M.D. DATE OF CONSULTATION: 06/14/2017 REASON FOR CONSULTATION: Status post have a new left bundle branch block, atrial fibrillation with biventricular response. HISTORY OF PRESENT ILLNESS: Mr. Spencer is a 77-year-old gentleman with history of atrial fibrillation, high blood pressure, hyperlipidemia, CVA, LV dysfunction fraction around 28%, coronary artery disease with a previous PTCA to Right coronary artery, patient was admitted for aortic valve replacement for that procedure was successful. During hospitalization developed a new left bundle-branch block. I was consulted for evaluation and management. The chart was reviewed. The patient was evaluated. ALLERGIES None. SOCIAL HISTORY Currently the patient denies smoking and drinking. FAMILY HISTORY Noncontributory to his current medical condition. MEDICATIONS Mr. Spencer is currently on 1. Eliquis 5 mg twice a day. 2. He is on aspirin 81 mg a day. 3. Lipitor 40 mg a day. 4. Plavix 75 mg a day. 5. Cardizem 30 mg q.6 h. 6. Lasix p.r.n. 7. He did receive Metoprolol a yesterday but that was Dc' d. 8. Entresol twice a day. REVIEW OF SYSTEMS Currently the patient referred no chest pain, no chest discomfort for refers feeling better than ever for the past 15 years. No vomiting. No fever. PHYSICAL EXAMINATION: IN GENERAL: Physical exam, fully oriented. VITAL SIGNS: Blood pressure 140, one morning over 69 pulse currently telemetry indicates 99/56, pulse varied between 89 to around 115, respiratory rate 18 Ventilated CARDIOVASCULAR SYSTEM: S1-S2 irregular. No gallop. ABDOMEN: Soft. No mass. EXTREMITIES: No edema. RADIOLOGIC: Electrocardiogram on hospitalization shows atrial fibrillation, currently a atrial fibrillation with biventricular response and right bundle-branch block. LABORATORY DATA Hemoglobin 11.90, white blood cell 12.2, potassium 4.3, creatinine is 0.67. INR is 1.0. ASSESSMENT AND RECOMMENDATIONS Mr. Spencer <<3:05>> There is a new left bundle-branch block. There maybe some issues with the AV node. Also the gentleman has atrial fibrillation. He will need gianni controlled agent. He has heart failure. Ejection fraction 20%. At this point the best approach is D/C Cardizem, initiated a beta-dionisio. That will help in the control of heart rate as well as heart failure. Gentleman will be observed for the next 24 hours. If there is no significant AV block. He can be discharged home. I understand that a defibrillatory vest is requested. The patient will be followed as an outpatient. Case discussed with the patient, his as well as the <<4:02>> coordinator. Francy Diana MD / /3:03 PM /3:20 PM
--- NOTE | 2017-06-14 16:04 | PD.CAR.PN ---
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 Intra- operative events were uncomplicated. PMH: Afib, asthma, BPH, acute systolic CHF, severe , cardiomyopathy surgery : Procedure: 06/13 Transcatheter aortic valve replacement with a 34 Corevalve Evolut Percutaneous left and right femoral arterial access with Perclose closure Objective: GENERAL: SKIN: Warm and dry. right IJ and pacer in place, both groin dressing in place ecchymosis right groin , no hematoma HEAD: Normocephalic. EYES: No scleral icterus. No injection or drainage. NECK: Supple, trachea midline. No JVD or lymphadenopathy. CARDIOVASCULAR: irregular rate and rhythm without murmurs, gallops, or rubs. RESPIRATORY: Breath sounds equal bilaterally. No accessory muscle use. GASTROINTESTINAL: Abdomen soft, non-tender, nondistended. MUSCULOSKELETAL: No cyanosis, or edema. BACK: Nontender without obvious deformity. No CVA tenderness. Vital Signs Date Time Temp Pulse Resp B/P (MAP) Pulse Ox O2 Delivery O2 Flow Rate FiO2 06/14/17 15:00 98.9 97 18 99/56 (70) 92 06/14/17 15:00 97 06/14/17 11:00 98.1 90 18 105/65 (78) 94 Arterial Line 06/14/17 11:00 90 06/14/17 08:51 127 141/69 06/14/17 07:20 98 Nasal Cannula 2.00 06/14/17 07:00 95 06/14/17 07:00 98.0 95 18 111/82 (92) 98 121/50 (73) 06/14/17 03:00 98.3 76 16 108/65 (79) 99 118/51 (73) 06/14/17 03:00 76 06/13/17 23:00 84 06/13/17 23:00 98.2 84 16 116/71 (86) 99 114/47 (69) 06/13/17 21:30 97 Nasal Cannula 2.00 06/13/17 19:00 99.7 52 16 110/66 (81) 98 121/48 (72) 06/13/17 19:00 52 Labs: Laboratory Tests Test 06/14/17 04:50 White Blood Count 12.2 TH/MM3 (4.0-11.0) Red Blood Count 3.95 MIL/MM3 (4.50-5.90) Hemoglobin 11.9 GM/DL (13.0-17.0) Hematocrit 35.6 % (39.0-51.0) Mean Corpuscular Volume 90.1 FL (80.0-100.0) Mean Corpuscular Hemoglobin 30.1 PG (27.0-34.0) Mean Corpuscular Hemoglobin Concent 33.4 % (32.0-36.0) Red Cell Distribution Width 13.8 % (11.6-17.2) Platelet Count 312 TH/MM3 (150-450) Mean Platelet Volume 7.5 FL (7.0-11.0) Blood Urea Nitrogen 9 MG/DL (7-18) Creatinine 0.67 MG/DL (0.60-1.30) Random Glucose 98 MG/DL (74-106) Total Protein 5.7 GM/DL (6.4-8.2) Albumin 2.8 GM/DL (3.4-5.0) Calcium Level 8.6 MG/DL (8.5-10.1) Alkaline Phosphatase 103 U/L (45-117) Aspartate Amino Transf (AST/SGOT) 13 U/L (15-37) Alanine Aminotransferase (ALT/SGPT) 19 U/L (12-78) Total Bilirubin 1.0 MG/DL (0.2-1.0) Sodium Level 135 MEQ/L (136-145) Potassium Level 4.3 MEQ/L (3.5-5.1) Chloride Level 103 MEQ/L (98-107) Carbon Dioxide Level 25.1 MEQ/L (21.0-32.0) Anion Gap 7 MEQ/L (5-15) Estimat Glomerular Filtration Rate 115 ML/MIN (>89) Result Diagram: 06/14/1744906/14/17449 (1) Severe aortic valve stenosis (2) Dilated cardiomyopathy (3) CAD (coronary artery disease) (4) Combined systolic and diastolic congestive heart failure, NYHA class 4 (5) S/P TAVR (transcatheter aortic valve replacement) Plan: stable, temp pacer and IJ to be removed all orders and discharge instructions as per Dr Elizondo will see prn (6) Afib Plan: n amiodarone and Kathleen Ruiz Jun 14, 2017 16:04
[2017-06-14] MEDS: METOPROLOL TARTRATE 25 MG TAB PO SCH (18:48)
[2017-06-14] MEDS: ATORVASTATIN 40 MG TAB PO SCH (21:05)
[2017-06-15] VITALS (15 sets, daily range): BP systolic 98–111; BP diastolic 61–63; PULSE 82–98; RESP 16–18; TEMP 98.3–98.4; O2SAT 99–100
[2017-06-15] MEDS: METOPROLOL TARTRATE 25 MG TAB PO SCH ×3 (01:57→11:52)
[2017-06-15] MEDS: SODIUM CHLOR 0.9% 1000 ML 1,000 ML IV SCH (06:30)
[2017-06-15] MEDS: CLOPIDOGREL 75 MG TAB PO SCH (09:07)
[2017-06-15] MEDS: TAMSULOSIN HCL 0.4 MG CAP PO SCH (09:07)
[2017-06-15] MEDS: BUDESONIDE-FORMOTEROL 160/4.5 MCG INHALER INH SCH (09:07)
[2017-06-15] MEDS: SACUBITRIL/VALSARTAN 24 MG-26 MG TAB PO SCH (09:08)
[2017-06-15] MEDS: ASPIRIN 81 MG CHEW TAB PO SCH (09:08)
[2017-06-15] MEDS: APIXABAN 5 MG TABLET PO SCH (09:08)
--- NOTE | 2017-06-15 10:26 | PD.CARD.PN ---
Subjective Subjective Remarks Chart reviewed. The patient feels so much better than he did a few weeks ago and has no cardiac complaints or bleeding. Telemetry reveals controlled atrial fibrillation with no significant pauses or change in bundle branch block. Electrophysiology note reviewed. Objective Medications Current Medications Medications (Trade) Dose Ordered Sig/Alessandro Route Start Time Stop Time Status Last Admin Sodium Chloride 1,000 ml @ 125 mls/hr Q8H IV 06/13/17 06:30 06/13/17 15:27 Cefazolin Sodium/ Dextrose 50 ml @ 100 mls/hr [employer]K [employer]INE [employer]PERATOR PRN IV 06/13/17 06:30 06/16/17 06:29 06/13/17 08:10 (Betadine 5% Antisepsis Kit) 1 applic [employer]K ENGINE OPERATOR PRN EACH NARE 06/13/17 06:30 06/16/17 06:29 06/13/17 06:41 (Bactroban Nasal 2% Oint) 1 applic DECK ENGINE OPERATOR PRN EACH NARE 06/13/17 06:30 06/16/17 06:29 (Chlorhexidine 2% Cloth) 3 pack [employer]K ENGINE OPERATOR PRN TOPICAL 06/13/17 06:30 06/16/17 06:29 06/13/17 06:41 (Aspirin Chew) 81 mg DAILY PO 06/14/17 09:00 06/15/17 09:08 (Plavix) 75 mg DAILY PO 06/13/17 12:00 06/15/17 09:07 (D50w (Vial) Inj) 50 ml UNSCH PRN IV PUSH 06/13/17 10:15 (Glucagon Inj) 1 mg UNSCH PRN OTHER 06/13/17 10:15 (Albuterol Neb) 2.5 mg Q2HR NEB PRN NEB 06/13/17 10:15 (Lipitor) 40 mg HS PO 06/13/17 21:00 06/14/17 21:05 (Symbicort 160-4.5 Inh) 2 puff BID INH 06/13/17 21:00 06/15/17 09:07 (Flomax) 0.4 mg DAILY PO 06/14/17 09:00 06/15/17 09:07 (Eliquis) 5 mg BID PO 06/13/17 13:00 06/15/17 09:08 (Entresto 24-26 Mg) 1 tab BID PO 06/13/17 21:00 06/15/17 09:08 (Lopressor) 25 mg Q6HR PO 06/14/17 18:00 06/15/17 06:22 Vital Signs / I&O Vital Signs Date Time Temp Pulse Resp B/P (MAP) Pulse Ox O2 Delivery O2 Flow Rate FiO2 06/15/17 10:00 84 06/15/17 09:00 86 06/15/17 08:00 98.4 90 18 111/62 (78) 100 06/15/17 08:00 88 06/15/17 07:00 87 06/15/17 06:27 98.3 94 16 101/63 (76) 99 06/15/17 06:00 82 06/15/17 05:00 86 06/15/17 04:00 90 06/15/17 03:00 93 06/15/17 02:02 95 98/63 (75) 06/15/17 02:00 98 06/15/17 01:00 84 06/15/17 00:00 84 06/14/17 23:38 98.4 63 16 87/56 (66) 98 06/14/17 23:00 81 06/14/17 22:00 88 06/14/17 21:00 86 06/14/17 20:00 98.4 96 16 109/61 (77) 96 06/14/17 20:00 96 06/14/17 19:53 96 Nasal Cannula 2.00 06/14/17 19:00 98 06/14/17 15:00 98.9 97 18 99/56 (70) 92 06/14/17 15:00 97 06/14/17 11:00 98.1 90 18 105/65 (78) 94 Arterial Line 06/14/17 11:00 90 I/O 06/14/17 06/14/17 06/14/17 06/15/17 06/15/17 06/15/17 07:00 15:00 23:00 07:00 15:00 23:00 Intake Total 240 ml 100 ml 720 ml 360 ml Output Total 515 ml 1000 ml 0 ml Balance -275 ml 100 ml -280 ml 360 ml Intake Oral 240 ml 720 ml 360 ml IV Total 0 ml 100 ml Output Urine Total 515 ml 1000 ml Stool Total 0 ml # Voids 3 Physical Exam GENERAL: Well-nourished, well-developed patient in no apparent distress. SKIN: Warm and dry. NECK: JVD normal - less than or equal to 5 cm H20. CARDIOVASCULAR: Irregular rate and rhythm without rubs. Possible S3. 1/6 early peaking systolic ejection murmur at the base and apex. RESPIRATORY: Normal breath sounds - equal bilaterally. No accessory muscle use. No wheezes, rales or rubs. PERIPHERY: No cyanosis, or edema. Imaging Reviewed Assessment and Plan Problem List: (1) Severe aortic valve stenosis ICD Codes: I35.0 - Nonrheumatic aortic (valve) stenosis (2) Dyspnea ICD Codes: R06.00 - Dyspnea, unspecified (3) Dilated cardiomyopathy ICD Codes: I42.0 - Dilated cardiomyopathy (4) CAD (coronary artery disease) ICD Codes: I25.10 - Atherosclerotic heart disease of [place] coronary artery without angina pectoris (5) Combined systolic and diastolic congestive heart failure, NYHA class 4 ICD Codes: I50.40 - Unspecified combined systolic (congestive) and diastolic ( congestive) heart failure Assessment and Plan Problems: Severe aortic stenosis with TAVR Dilated cardiomyopathy Drug-eluting stent Hypertension Hyperlipidemia Atrial fibrillation Left bundle branch block after valve replacement Recommendations: Continue aspirin, Plavix and anticoagulation. Metoprolol for rate control Endocarditis prophylaxis Statin therapy The patient is awaiting LifeVest. Dr. Sandra Lucio has been kind enough to assume the care and discharge of the patient. I will be available if needed. Bob Jeffries MD Jun 15, 2017 10:26
[2017-06-15] MEDS ORDERED: METO25TA3 PO (12:01)
--- NOTE | 2017-06-15 12:05 | EKG ---
Date Performed: 06/15/2017 Time Performed: 08:43:36 PTAGE: 77 years EKG: Atrial fibrillation. IV conduction defect Inferior T wave changes are nonspecific Abnormal ECG No significant change from prior electrocardiogram. PREVIOUS TRACING : 06/14/2017 11.56 DOCTOR: Bob Jeffries Interpretating Date/Time 06/15/2017 12:04:09
== END 2017-06-15 18:30 | disposition home or self-care (01) | DRG 266 ==
LOC: HSDI 05:55 → HDIC 06:04 → HCVI 10:00 → HCPC 06-14 15:39
PROVIDERS: ADMIT Radiology Vascular & Interventional Radiology; ATTEND Radiology Vascular & Interventional Radiology
PROC: 02RF38Z Replacement of Aortic Valve with Zooplastic Tissue, Percutaneous Approach (ICD-10-PCS; principal; 2017-06-13 07:25)
PROC: B246ZZ4 Ultrasonography of Right and Left Heart, Transesophageal (ICD-10-PCS; 2017-06-13 07:25)
PROC: B246ZZ4 Ultrasonography of Right and Left Heart, Transesophageal (ICD-10-PCS; 2017-06-13 07:25)
DX: I35.0 Nonrheumatic aortic (valve) stenosis (principal); I50.43 Acute on chronic combined systolic (congestive) and diastolic (congestive) heart failure; I42.0 Dilated cardiomyopathy; I48.91 Unspecified atrial fibrillation; I50.42 Chronic combined systolic (congestive) and diastolic (congestive) heart failure; I97.89 Other postprocedural complications and disorders of the circulatory system, not elsewhere classified; I11.0 Hypertensive heart disease with heart failure; I44.7 Left bundle-branch block, unspecified; E78.5 Hyperlipidemia, unspecified; I25.10 Atherosclerotic heart disease of native coronary artery without angina pectoris; N40.0 Benign prostatic hyperplasia without lower urinary tract symptoms; J45.909 Unspecified asthma, uncomplicated; Z98.61 Coronary angioplasty status; Z00.6 Encounter for examination for normal comparison and control in clinical research program
CPT/HCPCS: 33210; 33361; 80048; 80053; 85002; 85025; 85027; 85610; 85730; 86850; 86900; 86901; 86920; 93005; 94150; 94640; 94667; 94668; C1760; C1769; C1893; G0269; J0282; J0690; J1644; J1940; J2250; J2370; J2720; J3010; J7030